=== PATIENT | female | born 1950 | race Caucasian/White ===

== ENCOUNTER 2021-11-02 13:37 | Emergency (ER) | payer MEDICARE, OTHER, SELFPAY ==
--- NOTE | ~2021-11-02 | XR_ITS ---
EXAMINATION: XR chest 2V DATE: 11/02/2021 14:41 INDICATION: Cough. Hypoxia. Pulmonary fibrosis. TECHNIQUE: Frontal and lateral views of the chest were obtained. COMPARISON: None. FINDINGS: The lung volumes are normal. There is a diffuse interstitial pattern in the lungs. There ar e mild airspace opacities in the lower lung zones. No pleural effusion or pneumothorax. Cardiomegaly is noted. There is an old healed fracture of proximal left humerus. IMPRESSION: 1. Diffuse lung disease, consistent with chronic interstitial lung disease versus mild pulmonary promise a and basilar atelectasis versus pneumonia. 2. Cardiomegaly. Reviewed, dictated and finalized at location E. IMPRESSION: 1. Diffuse lung disease, consistent with chronic interstitial lung disease vers us mild pulmonary edema and basilar atelectasis versus pneumonia. 2. Cardiomegaly.
[2021-11-02 13:39] VITALS: BP 145/66; PULSE 95; RESP 26; TEMP 36.3; O2SAT 84
--- NOTE | 2021-11-02 13:55 | ECG_ITS ---
Measurements Intervals [place] Rate: 89 P: -10 VT: 144 QRS: 41 QRSD: 89 T: 7 QT: 359 QTc: 438 Interpretive Statements SINUS RHYTHM BASELINE ARTIFACT NONSPECIFIC ST ABNORMALITY BORDERLINE ECG NO PREVIOUS ECG AVAILABLE FOR COMPARISON Electronically Signed On 11-02-2021 16:32:57 CDT by Brodie Umanzor M.D.
[2021-11-02 14:23] LABS: Basophils Percent Auto 0.4 % (0.2-1.2); Eosinophils Absolute Auto 0.3 K/mm3 (0-0.3); Eosinophils Percent Auto 3.6 % (0-4.4); Hematocrit 45.3 % (37.0-47.0); Hemoglobin 15.1 g/dL (12.0-15.0); Immature Granulocyte Absolute 0.02 K/mm3 (0.00-0.031); Immature Granulocyte Percent A 0.3 % (0-0.5); Lymphocytes Absolute Auto 1.88 K/mm3 (0.9-3.2); Lymphocytes Percent Auto 27.3 % (18.3-44.2); Mean Corpuscular HGB Conc 33.3 g/dl (32-36); Mean Corpuscular Hemoglobin 31.7 pg (26-34); Mean Corpuscular Volume 95.2 fl (80-100); Mean Platelet Volume 9.1 fl (7.4-10.4); Monocytes Absolute Auto 0.6 K/mm3 (0.1-0.6); Monocytes Percent Auto 8.1 % (2.6-8.5); Neutrophils Absolute Auto 4.2 K/mm3 (1.3-6.7); Neutrophils Percent Auto 60.3 % (45.5-73.1); Platelet Count Result 300 k/mm3 (150-375); Red Blood Count 4.76 M/mm3 (4.2-5.4); Red Cell Distribution Width 12.5 % (11.5-14.5); White Blood Count 6.9 K/mm3 (4.5-10.0)
[2021-11-02 14:50] LABS: Alanine Aminotransferase 20 U/L (4-35); Albumin Level 4.4 g/dL (3.5-5.1); Alkaline Phosphatase 122 U/L (38-126); Anion Gap 8 mmol/L (8-16); Aspartate Amino Transferase 56 U/L (14-36); Blood Urea Nitrogen 33 mg/dL (7-17); Calcium 9.8 mg/dL (8.4-10.2); Carbon Dioxide 29 mmol/L (22-30); Chloride 103 mmol/L (98-107); Estimated CRCL calculation 75 ml/min; Estimated Glomerular Filt Rate > 60; Glucose 111 mg/dL (65-110); Potassium 3.6 mmol/L (3.4-5.0); Sodium 140 mmol/L (137-145)
[2021-11-02 14:53] VITALS: PULSE 84
[2021-11-02 15:17] VITALS: BP 125/51; PULSE 85; RESP 24; O2SAT 95
--- NOTE | 2021-11-02 15:32 | ED.SOB ---
HPI - SOB/Dyspnea General Chief Complaint: Shortness of Breath/Dyspnea Stated Complaint: sob, pulmonary fibrosis Time Seen by Provider: 11/02/21 14:37 Source: patient and family Mode of arrival: ambulatory Limitations: no limitations History of Present Illness HPI Narrative: 71-year-old female presents emergency room coming by her daughter. She got on a history of pulmonary fibrosis. She lives in [place] normally. She has been in our area since the first of the year. She acquired Covid the first of the year. She was fully vaccinated including booster. She did have to be hospitalized. However she has had progressive problems with her pulmonary fibrosis since that time. She wears oxygen at home generally between 2 to 2-1/2 L and is able to keep her O2 saturations status for. Today she noticed that when she took her oxygen off her O2 sat dropped to 88%. She had this mild persistent cough ever since she had the Covid. Denies any chills or fevers. She did go back home to [place] and about 9 or 10 days. She is concerned about try to get on a plane at this point. She had been on prednisone in the past but not been on it for a couple months. She states that in the past whenever she got on the prednisone it would markedly help her breathing situation. Related Data Home Medications Medication Instructions Recorded Confirmed aspirin 11/02/21 budesonide mcg INHALATION 11/02/21 famotidine [Pepcid AC] mg 11/02/21 fluoxetine [Prozac] 60 mg PO DAILY 11/02/21 hydrochlorothiazide [HydroDiuril] 12.5 mg PO DAILY 11/02/21 oxybutynin chloride 10 mg PO DAILY 11/02/21 simvastatin 20 mg PO HS 11/02/21 Allergies Allergy/AdvReac Type Severity Reaction Status Date / Time penicillin V Allergy Hives Verified 11/02/21 13:43 Review of Systems Review of Systems: CONSTITUTIONAL: Denies fever, chills, or sweats. EYES: Denies visual changes, redness, or discharge. ENT: Denies rhinorrhea, congestion, sore throat, or otalgia. CARDIOVASCULAR: Denies chest pain, palpitations, or edema. RESPIRATORY: Productive cough with some sputum. Shortness of breath. Requiring oxygen.. GASTROINTESTINAL: Denies abdominal pain, nausea, vomiting, or diarrhea. GENITOURINARY: Denies dysuria or hematuria. SKIN: Denies rash or itching. MUSCULOSKELETAL: Denies back pain, joint pain, or myalgia. NEUROLOGIC: Denies headache, numbness, or weakness. PSYCHIATRIC: Denies anxiety or depression. [facility] Past Medical History Medical History Pulmonary fibrosis Social History Social History Smoking status: Never smoker Exam Narrative: APPEARANCE: Well appearing, no pain in distress, well-nourished. Head normocephalic atraumtaic. EYES: PERRLA/EOMI, conjunctivae very clear. NOSE: Normal no drainage EARS:TMS clear Jakob Tim, with good light reflex. THROAT: Pharynx clear, no exudate. NECK: Supple. No adenopathy, no masses. RESPIRATORY: Airway patent, repsirations nonlabored. Scattered diffuse mild crackles. CARDIOVASCULAR: Regular rate and rhythm without murmurs rubs or gallops. ABDOMINAL: Soft, nontender, nondistended, no hepatosplenomegally MUSCULOSKELETAl: Moves all extremities. Strenght/ROM intact, No edema, No calf tenderness. NEURO: Alert. Cranial nerves II through XII intact. Good gait. Good coordination SKIN:: Warm, dry. Normal Color PSYCHIATRIC: Normal affect/mood, normal interaction with parents. Course Vital Signs Vital signs: Vital Signs Temperature 97.4 F L 11/02/21 13:39 Pulse Rate 95 11/02/21 13:39 Respiratory Rate 26 H 11/02/21 13:39 Blood Pressure 145/66 H 11/02/21 13:39 Pulse Oximetry 84 L 11/02/21 13:39 Temperature 97.4 F L 11/02/21 13:39 Pulse Rate 85 11/02/21 15:17 Respiratory Rate 24 H 11/02/21 15:17 Blood Pressure 125/51 L 11/02/21 15:17 Pulse Oximetry 95 11/02/21 15:17 MDM - SOB/Dyspn
[2021-11-02 15:43] VITALS: BP 125/62; PULSE 80; RESP 20; O2SAT 95
== END 2021-11-02 15:45 | disposition home or self-care (01) ==
PROVIDERS: Emergency Medicine; Emergency Provider Emergency Medicine
DX: J84.10 Pulmonary fibrosis, unspecified (principal); Z99.81 Dependence on supplemental oxygen; Z86.16 Personal history of COVID-19; Z79.82 Long term (current) use of aspirin; R94.31 Abnormal electrocardiogram [ECG] [EKG]
CPT/HCPCS: 36415; 71046; 80053; 85025; 93005; 99284

== ENCOUNTER 2022-07-03 16:03 | Emergency (ER) | payer MEDICARE, SELFPAY ==
[2022-07-03] VITALS (28 sets, daily range): BP systolic 113–162; BP diastolic 56–93; PULSE 63–97; RESP 18–32; TEMP 37.1; O2SAT 88–99
--- NOTE | ~2022-07-03 | XR_ITS ---
XR chest 2V 07/03/2022 17:11 Indication: Shortness of breath. Pulmonary fibrosis. Procedure: 2 view chest Comparison: 11/02/2021 Findings: Cardiomegaly with interstitial edema. No pleural effusion or pneumothorax. No acute osseous abnormality. No acute osseous abnormality. Impression: 1: Cardiomegaly with interstitial edema. Reviewed, dictated and finalized at location A. RAM MANAGER ENVIRONMENTAL PLANNING Impression: 1: Cardiomegaly with interstitial edema.
--- NOTE | ~2022-07-03 | CT_ITS ---
EXAMINATION: CTA chest PE protocol DATE: 07/03/2022 17:24 CANDY POLISHER INDICATION: Pulmonary embolism TECHNIQUE: Computed tomographic angiography (CTA) of the chest was performed with 100 mL Omnipaque-35 0 intravenous contrast. The dose-length product was 674.89 mGy-cm. Maximum intensity projection 3D-re constructions of the aorta and other arteries were constructed by the technologist on a separate work station. Automated exposure control and iterative reconstruction technique were employed. COMPARISON: No prior studies for comparison. . FINDINGS: Cardiomegaly. No significant pleural or pericardial effusion. There is mediastinal lipomato sis. Enlarged pulmonary arteries. Study is technically adequate without evidence for pulmonary emboli sm. There is extensive course interstitial changes throughout both lungs with bilateral bronchiectasi s and superimposed areas of groundglass opacification throughout. No endobronchial lesions. No pneumo thorax. No acute osseous abnormality. IMPRESSION: 1. No evidence for pulmonary embolism. 2: Severe chronic interstitial lung disease. 3: Pulmonary arterial hypertension. 4: Cardiomegaly. Reviewed, dictated and finalized at location A. Y POLISHER
--- NOTE | 2022-07-03 16:15 | ECG_ITS ---
Measurements Intervals [place] Rate: 82 P: 10 SC: 148 QRS: 30 QRSD: 86 T: 15 QT: 367 QTc: 429 Interpretive Statements SINUS RHYTHM WITH PREMATURE ATRIAL CONTRACTIONS BASELINE ARTIFACT NONSPECIFIC ST ABNORMALITY INFERIOR LEADS COMPARED TO ECG 11/02/2021 14:04:59 PREMATURE ATRIAL CONTRACTIONS ARE NOW PRESENT Electronically Signed On 07-04-2022 14:01:38 FINAL CLEANER by Brodie Umanzor M.D.
[2022-07-03 16:32] LABS: Basophils Percent Auto 0.4 % (0.2-1.2); Eosinophils Absolute Auto 0.1 K/mm3 (0-0.3); Eosinophils Percent Auto 0.8 % (0-4.4); Hematocrit 46.8 % (37.0-47.0); Hemoglobin 15.5 g/dL (12.0-15.0); Immature Granulocyte Absolute 0.05 K/mm3 (0.00-0.031); Immature Granulocyte Percent A 0.6 % (0-0.5); Lymphocytes Absolute Auto 1.42 K/mm3 (0.9-3.2); Lymphocytes Percent Auto 15.7 % (18.3-44.2); Mean Corpuscular HGB Conc 33.1 g/dl (32-36); Mean Corpuscular Hemoglobin 32.6 pg (26-34); Mean Corpuscular Volume 98.5 fl (80-100); Mean Platelet Volume 9.3 fl (7.4-10.4); Monocytes Absolute Auto 0.4 K/mm3 (0.1-0.6); Monocytes Percent Auto 4.2 % (2.6-8.5); Neutrophils Absolute Auto 7.1 K/mm3 (1.3-6.7); Neutrophils Percent Auto 78.3 % (45.5-73.1); Platelet Count Result 271 k/mm3 (150-375); Red Blood Count 4.75 M/mm3 (4.2-5.4); Red Cell Distribution Width 13.1 % (11.5-14.5)
[2022-07-03 16:42] LABS: Alanine Aminotransferase 31 U/L (6-35); Albumin Level 4.5 g/dL (3.5-5.1); Alkaline Phosphatase 104 U/L (38-126); Anion Gap 12 mmol/L (8-16); Aspartate Amino Transferase 46 U/L (14-36); Bilirubin,Total 1.4 mg/dL (0.2-1.3); Blood Urea Nitrogen 24 mg/dL (7-17); Calcium 9.7 mg/dL (8.4-10.2); Carbon Dioxide 26 mmol/L (22-30); Chloride 101 mmol/L (98-107); Estimated Glomerular Filt Rate > 60; Glucose 113 mg/dL (65-110); Potassium 4.1 mmol/L (3.4-5.0); Sodium 139 mmol/L (137-145)
[2022-07-03 17:40] LABS: NT Pro B Type Natriuretic Pept 38 pg/mL (5-100)
--- NOTE | 2022-07-03 18:32 | ED.SOB ---
HPI - SOB/Dyspnea General Chief Complaint: Shortness of Breath/Dyspnea Stated Complaint: SOB hx of pulmonary fibrosis Time Seen by Provider: 07/03/22 16:17 History of Present Illness HPI Narrative: Patient is a 71-year-old female who presents to the ER with shortness of breath. Patient has history of pulmonary fibrosis. She is requiring 4 L of oxygen at baseline. No increased O2 requirement but she reports her pulse oximeter was in the 60s at home. No chest pain or chest pressure. Recently traveled to the [place] and back but she was doing this by plane. She is currently up here visiting her daughter from [place]. Patient has chronic cough. No new fevers. No new production to her cough. Related Data Home Medications Medication Instructions Recorded Confirmed aspirin 81 mg capsule 11/02/21 budesonide 200 mcg/actuation mcg inhalation 11/02/21 breath activated powder inhaler famotidine 20 mg chewable tablet mg 11/02/21 fluoxetine 20 mg capsule (Prozac) 60 mg PO DAILY 11/02/21 hydrochlorothiazide 25 mg tablet 12.5 mg PO DAILY 11/02/21 oxybutynin chloride 10 mg 10 mg PO DAILY 11/02/21 tablet,extended release 24 hr simvastatin 20 mg tablet 20 mg PO HS 11/02/21 Allergies Allergy/AdvReac Type Severity Reaction Status Date / Time penicillin V Allergy Hives Verified 07/03/22 16:39 Review of Systems Review of Systems: All systems reviewed & are unremarkable except as noted in HPI and below Constitutional: Constitutional: Denies chills, Denies fatigue and Denies fever(s) ENT: Denies nasal congestion and Denies sore throat Cardiovascular: Cardiovascular: Denies chest pain and Denies radiating jaw, neck or arm pain Respiratory: Respiratory: Reports cough, Reports dyspnea and Denies wheezing Gastrointestinal: Gastrointestinal: Denies abdominal pain, Denies nausea and Denies vomiting PMFSH Past Medical History Medical History (Updated 07/03/22 @ 19:17 by Josh Miller MD) GERD (gastroesophageal reflux disease) Hyperlipidemia Hypertension Pulmonary fibrosis Social History Social History Smoking status: Never smoker Exam Narrative: GENERAL: Well-appearing, well-nourished, and in no acute distress. HEAD: Normocephalic, atraumatic. EYES: PERRL and EOMI. ENT: Mucous membranes moist. CHEST: Clear to auscultation. No respiratory distress. HEART: Regular rate and rhythm. Normal peripheral pulses. ABDOMEN: Soft, nontender, nondistended. EXTREMITIES: Normal range of motion. No edema. SKIN: Warm, dry, no rash. NEURO: Alert and oriented x3. PSYCH: Normal mood and affect. Course Course Emergency Course: No hypoxia here. No increase in oxygen requirement. No PE or pneumonia. Will increase patient's steroids for home. Vital Signs Vital signs: Vital Signs Temperature 98.7 F 07/03/22 16:16 Pulse Rate 97 07/03/22 16:16 Respiratory Rate 32 H 07/03/22 16:16 Blood Pressure 162/83 H 07/03/22 16:16 Pulse Oximetry 93 07/03/22 16:16 Oxygen Delivery Nasal Cannula 07/03/22 16:16 Oxygen Flow Rate 4 07/03/22 16:16 Temperature 98.7 F 07/03/22 16:16 Pulse Rate 70 07/03/22 19:01 Respiratory Rate 23 H 07/03/22 19:01 Blood Pressure 131/69 07/03/22 19:01 Pulse Oximetry 99 07/03/22 17:46 Oxygen Delivery Nasal Cannula 07/03/22 16:24 Oxygen Flow Rate 4 07/03/22 16:24 MDM - SOB/Dyspnea Lab Data 07/03/22 16:26 07/03/22 16:26 Labs: Lab Results 07/03/22 07/03/22 07/03/22 Range/Units 16:26 16:26 16:26 WBC 9.0 (4.5-10.0) K/mm3 RBC 4.75 (4.2-5.4) M/mm3 Hgb 15.5 H (12.0-15.0) g/dL Hct 46.8 (37.0-47.0) % MCV 98.5 (80-100) fl MCH 32.6 (26-34) pg MCHC 33.1 (32-36) g/dl RDW 13.1 (11.5-14.5) % Plt Count 271 (150-375) k/mm3 MPV 9.3 (7.4-10.4) fl Immature Gran % (Auto) 0.6 H (0-0.5) % Neut % (Auto) 78.3 H (45
--- NOTE | 2022-07-03 21:45 | PC.NURSE ---
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 Taco Jameson in pulmonology in [place] with [facility].
== END 2022-07-03 20:02 | disposition home or self-care (01) ==
PROVIDERS: Emergency Provider Emergency Medicine
DX: J84.10 Pulmonary fibrosis, unspecified (principal); I10 Essential (primary) hypertension; E78.5 Hyperlipidemia, unspecified; K21.9 Gastro-esophageal reflux disease without esophagitis; Z99.81 Dependence on supplemental oxygen; Z79.82 Long term (current) use of aspirin; I51.7 Cardiomegaly; I27.21 Secondary pulmonary arterial hypertension
CPT/HCPCS: 36415; 71046; 71275; 80053; 83880; 85025; 93005; 99284; Q9967

== ENCOUNTER 2022-07-24 14:57 | Inpatient (IN) | payer MEDICARE, SELFPAY ==
[2022-07-24] VITALS (47 sets, daily range): BP systolic 97–162; BP diastolic 54–82; PULSE 71–110; RESP 18–42; TEMP 36.5; O2SAT 77–100; BMI 33.7
--- NOTE | ~2022-07-24 | XR_ITS ---
Portable chest x-ray Comparison: 07/03/2022 Clinical History: Cough, pulmonary fibrosis Findings: Diffuse interstitial disease is present throughout both lungs. No pleural effusion or pneu mothorax. Cardiomediastinal silhouette is stable. Bones and soft tissues are unremarkable. Impression: Diffuse chronic interstitial disease. Reviewed, dictated and finalized at location . CTOR OF PHYSICAL EDUCATION Impression: Diffuse chronic interstitial disease.
--- NOTE | ~2022-07-24 | XR_ITS ---
EXAMINATION: XR chest 1V portable DATE: 07/26/2022 10:52 INDICATION: Increasing shortness of breath TECHNIQUE: frontal view of the chest was obtained. COMPARISON: Chest radiograph and chest CT studies dated 07/24/2022 and 07/03/2022 and chest radiograph dated 11/19/2021 FINDINGS: Unchanged diffuse interstitial and airspace opacities throughout both lungs. No pleural effusion or p neumothorax. Mild cardiomegaly. IMPRESSION: 1. Unchanged diffuse interstitial and airspace opacities throughout both lungs which could represent pulmonary edema or pneumonia in the acute setting, chronic interstitial lung disease or some combinat ion thereof. Reviewed, dictated and finalized at location A. EAR MEDICINE TECHNICIAN IMPRESSION: 1. Unchanged diffuse interstitial and airspace opacities throughout both lungs which could represent pulmonary edema or pneumonia in the acute setting, chroni c interstitial lung disease or some combination thereof.
--- NOTE | ~2022-07-24 | XR_ITS ---
Portable chest x-ray Comparison: 07/26/2022 Clinical History: Interstitial lung disease Findings: Diffuse interstitial lung disease is stable from prior exam. No pneumothorax or pleural ef fusion. Cardiomediastinal silhouette is stable. Bones and soft tissues are unremarkable. Impression: Stable diffuse chronic interstitial disease. Reviewed, dictated and finalized at [facility]. D SUPPORT AGENT Impression: Stable diffuse chronic interstitial disease.
--- NOTE | ~2022-07-24 | CT_ITS ---
EXAMINATION: CTA chest PE protocol DATE: 07/24/2022 17:22 INDICATION: Shortness of breath. Pulmonary fibrosis. TECHNIQUE: Computed tomography angiography (CTA) of the chest was performed with 100 mL Omnipaque-350 intravenous contrast timed to evaluate the pulmonary arteries. Coronal maximum intensity projection 3D-reconstructions were created by the technologist. Automated exposure control and iterative reconst ruction technique were employed. Exam dose: 682.13 mGy-cm total exam DLP. COMPARISON: 07/24/2022 portable AP chest 07/03/2022 CT pulmonary FINDINGS: There is diagnostic contrast enhancement of the pulmonary arteries and no evidence of pulmo nary embolism. No thoracic aortic aneurysm or dissection. Heart size is within normal range. No pericardial or pleur al effusion. No hilar or mediastinal significantly enlarged lymph nodes. Extensive patchy mosaic 07/24/2022 interstitial fibrosis and bronchiectasis. Normal morphology of the adrenal glands. Small sliding hiatal hernia. Degenerative spurring of the thoracic spine. No significant osteolytic or osteoblastic lesions. IMPRESSION: No evidence of pulmonary embolism Extensive bilateral pulmonary interstitial fibrosis Reviewed, dictated and finalized at Location A. Reviewed, dictated and finalized at location A. ERCIAL CONSTRUCTION SUPERINTENDENT
--- NOTE | 2022-07-24 15:09 | ECG_ITS ---
Measurements Intervals [place] Rate: 100 P: 14 DE: 167 QRS: 35 QRSD: 86 T: 21 QT: 325 QTc: 420 Interpretive Statements SINUS TACHYCARDIA NONSPECIFIC T-WAVE ABNORMALITY ABNORMAL RHYTHM ECG COMPARED TO ECG 07/03/2022 16:28:36 NO SIGNIFICANT DIFFERENCE Electronically Signed On 07-24-2022 20:08:41 WELDER PRODUCTION LINE GAS by Lucas Brownlee M.D.
[2022-07-24 15:20] LABS: Basophils Percent Auto 0.4 % (0.2-1.2); Eosinophils Percent Auto 0.2 % (0-4.4); Hematocrit 45.3 % (37.0-47.0); Immature Granulocyte Absolute 0.04 K/mm3 (0.00-0.031); Immature Granulocyte Percent A 0.5 % (0-0.5); Lymphocytes Absolute Auto 0.97 K/mm3 (0.9-3.2); Lymphocytes Percent Auto 11.4 % (18.3-44.2); Mean Corpuscular HGB Conc 33.1 g/dl (32-36); Mean Corpuscular Hemoglobin 32.4 pg (26-34); Mean Corpuscular Volume 97.8 fl (80-100); Mean Platelet Volume 9.1 fl (7.4-10.4); Monocytes Absolute Auto 0.3 K/mm3 (0.1-0.6); Monocytes Percent Auto 3.4 % (2.6-8.5); Neutrophils Absolute Auto 7.2 K/mm3 (1.3-6.7); Neutrophils Percent Auto 84.1 % (45.5-73.1); Platelet Count Result 222 k/mm3 (150-375); Red Blood Count 4.63 M/mm3 (4.2-5.4); Red Cell Distribution Width 13.3 % (11.5-14.5); White Blood Count 8.5 K/mm3 (4.5-10.0)
--- NOTE | 2022-07-24 15:23 | ED.SOB ---
HPI - SOB/Dyspnea General Chief Complaint: Shortness of Breath/Dyspnea Stated Complaint: SOB Time Seen by Provider: 07/24/22 15:19 Source: RN notes reviewed History of Present Illness HPI Narrative: Patient presents emergency department from home for shortness of breath. Patient states she has history of pulmonary fibrosis chronically on 4 L nasal cannula noted increased shortness of breath started yesterday with a cough this been nonproductive. States at that time she had increase her oxygen to 5 L but still noted increased shortness of breath with any sort of exertion patient arrived in our ER on 6 L with an O2 sat of 77% was placed on nonrebreather. She denies any fevers or chills she denies any chest pain abdominal pain symptoms Related Data Home Medications Medication Instructions Recorded Confirmed aspirin 81 mg capsule 11/02/21 budesonide 200 mcg/actuation mcg inhalation 11/02/21 breath activated powder inhaler famotidine 20 mg chewable tablet mg 11/02/21 fluoxetine 20 mg capsule (Prozac) 60 mg PO DAILY 11/02/21 hydrochlorothiazide 25 mg tablet 12.5 mg PO DAILY 11/02/21 oxybutynin chloride 10 mg 10 mg PO DAILY 11/02/21 tablet,extended release 24 hr simvastatin 20 mg tablet 20 mg PO HS 11/02/21 Allergies Allergy/AdvReac Type Severity Reaction Status Date / Time penicillin V Allergy Hives Verified 07/24/22 15:09 Review of Systems Review of Systems: Gen.: Denies fevers or chills ENT: Denies congestion Respiratory: See HPI CV: Denies chest pain or palpitations GI: Denies abdominal pain nausea, emesis or diarrhea Musculoskeletal: Denies back pain or muscle pain Neuro: Denies numbness, tingling, weakness or focal weakness Skin: Denies rash Except as documented, all other systems reviewed and negative [facility] Past Medical History Medical History GERD (gastroesophageal reflux disease) Hyperlipidemia Hypertension Pulmonary fibrosis Social History Social History Smoking status: Never smoker Exam Narrative: APPEARANCE: No acute distress, nontoxic, resting in bed EYES: EOMI HEENT: Normocephalic, atraumatic, OMM RESPIRATORY: Mild respiratory distress, wheezing in the bilateral upper lung canales with decreased breath sounds in the bases with crackles present CARDIOVASCULAR: Regular rate and rhythm without murmurs rubs or gallops. ABDOMINAL: Soft, nontender, nondistended, no rebound or guarding MUSCULOSKELETAl: Moves all extremities. No clubbing, cyanosis or edema. NEURO: Awake and alert. Following commands, speech normal, no focal deficits SKIN:: Warm, dry. No rashes lesions or abrasions PSYCHIATRIC: Normal affect/mood, Course Course Emergency Course: Patient was given breathing treatment and then placed on high flow nasal cannula at 10 L an hour with good improvement Discussed with ELYSSA Doty for Dr. Kiser agrees with admission. Request patient started on Levaquin Discussed with patient and family results of workup and diagnosis. Discussed need for admission. Patient and family understand and agree to current treatment plan Vital Signs Vital signs: Vital Signs Pulse Rate 110 H 07/24/22 15:03 Respiratory Rate 42 H 07/24/22 15:03 Blood Pressure 162/82 H 07/24/22 15:03 Pulse Oximetry 77 L 07/24/22 15:03 Oxygen Delivery Nasal Cannula 07/24/22 15:03 Oxygen Flow Rate 6 07/24/22 15:03 Pulse Rate 96 07/24/22 17:01 Respiratory Rate 25 H 07/24/22 17:01 Blood Pressure 125/64 07/24/22 17:01 Pulse Oximetry 92 07/24/22 17:24 Oxygen Delivery High Flow Nasal Cannula 07/24/22 16:19 Oxygen Flow Rate 10 07/24/22 16:19 MDM - SOB/Dyspnea Lab Data 07/24/22 15:14 07/24/22 15:14 Labs: Lab Results 07/24/22 07/24/22 07/24/22 Range/Units 15:14 15:14 15:14 WBC 8.5 (4.5-10.0) K/mm3 RBC 4.63 (4.2-5.4) M/mm3 Hgb
[2022-07-24] MEDS: SODIUM CHLORIDE 0.9% IV 1,000 ML 999 ML IV CONT (15:29)
[2022-07-24 15:30] LABS: Alanine Aminotransferase 32 U/L (6-35); Albumin Level 4.2 g/dL (3.5-5.1); Alkaline Phosphatase 93 U/L (38-126); Anion Gap 7 mmol/L (8-16); Aspartate Amino Transferase 44 U/L (14-36); Bilirubin,Total 1.3 mg/dL (0.2-1.3); Blood Urea Nitrogen 15 mg/dL (7-17); Calcium 8.9 mg/dL (8.4-10.2); Carbon Dioxide 29 mmol/L (22-30); Chloride 100 mmol/L (98-107); Estimated CRCL calculation 81 ml/min; Estimated Glomerular Filt Rate > 60; Glucose 157 mg/dL (65-110); Potassium 3.8 mmol/L (3.4-5.0); Sodium 136 mmol/L (137-145)
[2022-07-24] MEDS: ALBUTEROL SULFATE NEB 2.5 MG/3 ML INH 5 MG INHALATION ×2 (15:32→22:20)
[2022-07-24] MEDS: IPRATROPIUM BR 0.02% INH SOLN 0.5 MG/2.5 ML VIAL INHALATION ×2 (15:32→22:20)
[2022-07-24 15:50] LABS: Alveolar/Arterial O2 Gradient 543.3 mmHg; Base Excess ABG 1.1 mEq/l (+/-2.0); Carboxyhemoglobin 1.3 % THb (0-2.0); Fractional Inspired Oxygen 100 %; HCO3 ABG 25.5 mEq/l (22.0-26.0); Methemoglobin ABG 0.2 %THb (0-1.5); Oxygen Content ABG 19.9 %vol (16.0-22.0); Oxygen Saturation ABG 98.7 % (95.0-100.0); Oxyhemoglobin 96.6 % THb (90.0-100.0); PCO2 ABG 39.7 mmHg (35.0-45.0); Reduced Hemoglobin 1.9 %THb (0-5.0); Total Hemoglobin 14.5 g/dL (12.0-18.0); pH ABG 7.425 (7.350-7.450)
[2022-07-24 15:51] LABS: Device NON-REBREATHER MASK; Site Drawn LEFT BRACHIAL
[2022-07-24 17:46] LABS: Influenza A QL RT-PCR Negative (Negative); Influenza B QL RT-PCR Negative (Negative); SARS-CoV-2 RNA PCR Negative
[2022-07-24 19:11] LABS: Prothrombin Time 12.9 Seconds (11.1-14.7)
[2022-07-24 19:12] LABS: Partial Thromboplastin Time 33.1 SECONDS (22.3-36.8)
[2022-07-24 19:21] LABS: Lactic Acid Reflex 1.9 mmol/L (0.7-2.0)
--- NOTE | 2022-07-24 21:23 | PC.NURSE ---
This patient, Cheyenne Santos, was admitted to IMU Room 202-01. Patient/family oriented to hospital policies and general routines including ID bracelet, bed and alarms, visiting hours, pain management, procedures, bathroom and other care routines, personal items, smoking policy, room service/diet, and visiting hours. Information on how to activate the Rapid Response Team has been discussed. Patient/Family are encouraged to report perceived risks to care and to ask questions if they do not understand what they are told or what they should do.
--- NOTE | 2022-07-24 22:00 | PC.NURSE ---
This patient, Cheyenne Santos, was admitted to IMU Room 202-01 at 2130 . Patient/family oriented to hospital policies and general routines including ID bracelet, bed and alarms, visiting hours, pain management, procedures, bathroom and other care routines, personal items, smoking policy, room service/diet, and visiting hours. Information on how to activate the Rapid Response Team has been discussed. Patient/Family are encouraged to report perceived risks to care and to ask questions if they do not understand what they are told or what they should do.
[2022-07-24] MEDS: WATER FOR IRRIGATION, STERILE 1,000 ML BOTTLE 1000 ML (22:03)
--- NOTE | 2022-07-24 22:29 | PM.IMHP ---
H&P: HPI History of Present Illness Date/Time: 07/24/22 22:29 Chief Complaint: Shortness of breath Narrative: 71-year-old female with a past medical history of chronic hypoxic respiratory failure due to bronchiectasis and idiopathic pulmonary fibrosis who presented to the ER with increased shortness of breath. Patient reports that she has actually been having increased cough and shortness of breath for 1 week but it acutely worsened last night. Her home oxygen concentrator only goes up the 5 L nasal cannula. She is usually on 4 L nasal cannula at all times. When EMS arrived to her home she had tried to turn her concentrator up to 6 L nasal cannula and was satting 70%. EMS place patient on 15 L non-rebreather to maintain oxygen saturations of 98%. She reports that her cough has been productive of clear sputum. She denies fevers or chills. She has not noticed any weight gain or lower extremity swelling. She states that she recently moved here from [place] 2 months ago and is trying to get established with Dr. Leyva from pulmonology. She has not yet found a primary care physician. She was having increased respiratory symptoms a couple of weeks ago and received a prednisone burst and is currently being tapered back down to her chronic home prednisone dose of 10 mg. She has been back down to 10 mg for a couple of days. She reports that she has been using her home nebulizers with little to no relief in her symptoms. She reports some lateral rib pain due to coughing. She denies any initial chest pain. She reports that she is nearly completely immobile at baseline. She stands and has a folding transport chair to get anywhere of any real distance but can walk far enough to get to the bathroom. She does not use a walker or a cane. She has been receiving oral I statin for last 4-5 days due to oral thrush in sores in her mouth which was called in by her primary care physician in [place]. She had COVID-20 August 2021. She is fully vaccinated against COVID and influenza. Review of Systems Review of Systems: 12 systems were reviewed with pertinent positives and negatives per HPI. Except as documented in the HPI, all other systems were reviewed and are negative. [facility] Past Medical History Medical History (Updated 07/25/22 @ 11:30 by Moi Bansal MD) Bronchiectasis Depression with anxiety GERD (gastroesophageal reflux disease) Hyperlipidemia Hypertension Idiopathic peripheral neuropathy Macular degeneration Mixed incontinence urge and stress Pulmonary fibrosis Surgical History Surgical History (Updated 07/25/22 @ 09:17 by Hollie Kiser DO) History of laparoscopic cholecystectomy (~2011) Status post cataract extraction of both eyes with insertion of intraocular lens Status post open reduction with internal fixation of fracture (~2018) Left wrist fracture Family History Family History Sibling Diabetes mellitus Uterine cancer Sibling Sjogren's disease Rheumatoid arthritis Social History Social History (Updated 07/25/22 @ 09:19 by Hollie Kiser DO) Social History: The patient used to live with her daughter in [place] but decided to come live with her daughter here in May of 2022. She denies any significant alcohol use. 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 Code status: Full code Surrogate decision maker: Daughter Smoking status: Never smoker Alcohol intake: never Substance use: never Lack of Transportation: No Lack of Food: Never True Current Housing: I Have Housing Concerned About Future Housing: No Difficulty Paying Gas/Electric Bills: No Difficulty Paying for Meds: No Currently Unemployed: No Education: Decline to Answer Difficulty w/ Childcare or Family Care: No Spiritual care concerns: No Meds Home Medications and Allergies Home Medications Medication Instructions Recorded Confirmed Ty
[2022-07-24] MEDS: methylPREDNISolone SOD SUCC 125 MG VIAL 60 MG IV PUSH (22:57)
[2022-07-25] VITALS (20 sets, daily range): BP systolic 130–151; BP diastolic 51–77; PULSE 73–103; RESP 18–24; TEMP 36.2–36.8; O2SAT 90–95
[2022-07-25] MEDS: methylPREDNISolone SOD SUCC 125 MG VIAL 60 MG IV PUSH ×2 (05:34→17:49)
[2022-07-25 05:44] LABS: Basophils Percent Auto 0.1 % (0.2-1.2); Hemoglobin 13.2 g/dL (12.0-15.0); Immature Granulocyte Absolute 0.03 K/mm3 (0.00-0.031); Immature Granulocyte Percent A 0.4 % (0-0.5); Lymphocytes Absolute Auto 0.47 K/mm3 (0.9-3.2); Lymphocytes Percent Auto 6.9 % (18.3-44.2); Mean Corpuscular HGB Conc 32.2 g/dl (32-36); Mean Corpuscular Hemoglobin 31.4 pg (26-34); Mean Corpuscular Volume 97.6 fl (80-100); Mean Platelet Volume 9.5 fl (7.4-10.4); Monocytes Absolute Auto 0.1 K/mm3 (0.1-0.6); Neutrophils Absolute Auto 6.3 K/mm3 (1.3-6.7); Neutrophils Percent Auto 91.6 % (45.5-73.1); Platelet Count Result 200 k/mm3 (150-375); Red Cell Distribution Width 13.2 % (11.5-14.5); White Blood Count 6.9 K/mm3 (4.5-10.0)
[2022-07-25 05:54] LABS: Alanine Aminotransferase 30 U/L (6-35); Albumin Level 3.6 g/dL (3.5-5.1); Alkaline Phosphatase 87 U/L (38-126); Anion Gap 4 mmol/L (8-16); Aspartate Amino Transferase 40 U/L (14-36); Bilirubin,Total 1.1 mg/dL (0.2-1.3); Blood Urea Nitrogen 12 mg/dL (7-17); Calcium 8.4 mg/dL (8.4-10.2); Carbon Dioxide 31 mmol/L (22-30); Chloride 104 mmol/L (98-107); Estimated CRCL calculation 94 ml/min; Estimated Glomerular Filt Rate > 60; Glucose 175 mg/dL (65-110); Potassium 3.8 mmol/L (3.4-5.0); Sodium 139 mmol/L (137-145)
[2022-07-25] MEDS: ALBUTEROL SULFATE NEB 2.5 MG/3 ML INH 5 MG INHALATION ×3 (07:58→21:28)
[2022-07-25] MEDS: IPRATROPIUM BR 0.02% INH SOLN 0.5 MG/2.5 ML VIAL INHALATION ×3 (07:58→21:28)
[2022-07-25] MEDS: OPTI-GEN TAB 1 TABLET PO ×2 (09:45→17:49)
[2022-07-25] MEDS: CHOLECALCIFEROL 1,000 UNITS TABLET 5000 UNITS PO (09:46)
[2022-07-25] MEDS: ASPIRIN 81 MG ENTERIC TABLET PO (09:46)
[2022-07-25] MEDS: FLUoxetine HCL 20 MG CAPSULE 60 MG PO (09:46)
[2022-07-25] MEDS: FLUCONAZOLE 100 MG TABLET PO (09:46)
[2022-07-25] MEDS: FLUTICASONE PROPIONATE 0.05% NA SPR 16 GM BTL (*BKC) 2 SPRAY NASAL (09:46)
[2022-07-25] MEDS: hydroCHLOROthiazide 12.5 MG CAPSULE PO (09:46)
[2022-07-25] MEDS: ENOXAPARIN 40 MG/0.4 ML SYRINGE SUB-Q (09:46)
[2022-07-25] MEDS: NYSTATIN 100,000 UNITS/ML SUSP 5 ML ORAL.SUSP 4 ML PO ×4 (09:46→21:31)
--- NOTE | 2022-07-25 10:40 | PM.IMPN ---
Progress Note: A&P Assessment and Plan (1) Acute and chronic respiratory failure with hypoxia: Code(s): J96.21 - Acute and chronic respiratory failure with hypoxia Status: Acute Assessment and Plan: Patient has acute on chronic hypoxic respiratory failure due to exacerbation of her pulmonary fibrosis and bronchiectasis. CTA chest showing no PE or infiltrates but showing extensive bilateral pulmonary fibrosis. The etiology of the flare could include bronchospasm with from cold weather, the fact she has been off her nebulizer treatments for a week and/or acute bronchitis. Pulmonary consult ordered. -continue empiric antibiotic therapy with Levaquin. -continue scheduled Solu-Medrol. -continue coronet and incentive spirometer to help with pulmonary toilet. -continue patient's home loratadine, Flonase, and inhaled corticosteroid. -continue scheduled nebulizer therapy q.6 hours with albuterol and Atrovent -wean O2 to keep SpO2>89% -add mucinex (2) Pulmonary fibrosis: Code(s): J84.10 - Pulmonary fibrosis, unspecified Status: Acute Assessment and Plan: Patient with idiopathic pulmonary fibrosis originally diagnosed in [place]. Her open claims representative is Dr. Jameson. She has moved to this area and is trying to establish care with Dr. Calloway. She states she is not a candidate for lung transplant. 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 -wean o2 as toelrated (3) Oral pharyngeal candidiasis: Code(s): B37.0 - Candidal stomatitis Status: Acute Assessment and Plan: Patient has oral pharyngeal thrush and still has evidence of thrush despite being on nystatin for 4-5 days. Fluconazole p.o. daily for 5 days was started. (4) Hyperglycemia: Code(s): R73.9 - Hyperglycemia, unspecified Status: Acute Assessment and Plan: The patient's blood glucose was reviewed on 07/25 Glucose is elevated probably related to steroids. Start AccuCheks covering with sliding scale. Hypoglycemia protocol kely be available as needed. (5) Depression with anxiety: Code(s): F41.8 - Other specified anxiety disorders Status: Acute Assessment and Plan: She is anxious. Possibly related to the steroids and/or nebulizer treatments. Continue Prozac. COnsider adding Buspar if it is felt that her anxiety is contributing to her respiratory issues (6) Hypertension: Code(s): I10 - Essential (primary) hypertension Status: Acute Assessment and Plan: Patient's blood pressure was reviewed on 07/25 Blood pressure remains well controlled. Will continue current medications. Subjective Date/time seen: 07/25/22 10:40 Interval history: 71yo female with pulmonary fibrosis here for SOB. patient is originally from [place]. She was seeing Dr. Jameson as a open claims representative there. She has moved to this area recently and is trying to establish care with Dr. Calloway. She is steroid dependent. She normally uses her nebulizer treatments 3-4 times per week but has increase this over the past 3 weeks to 1-2 times a day. She developed thrush about a week ago and stopped taking her nebulizer treatments because she thought this was contributing to the thrush. She lives with her daughter who is a teacher. No sick contacts at home but her daughter is exposed to sick people at work. Patient denies any fever or chills. Her cough is nonproductive. She does not wear BiPAP at home. She normally uses 4 L of oxygen her SpO2 runs 89-92%. She had to increase her oxygen to 5 L recently. She became severely hypoxic on 9L when she was up to the bedside commode.She states she is not a candidate for lung transplant. Exam Narrative: AF 97.2 136/62 91 20 94% 9L Gen - NARD HEENT - scant amount thrush noted of the soft
--- NOTE | 2022-07-25 11:58 | PM.CNPUL ---
Assessment and Plan Assessment and plan (1) Pulmonary fibrosis: Code(s): J84.10 - Pulmonary fibrosis, unspecified Status: Acute Assessment and Plan: 71-year-old female with history of chronic hypoxemic respiratory failure related to pulmonary fibrosis. The patient has been on nintedanib for possible idiopathic pulmonary fibrosis as she stated. On physical exam she has diffuse crackles bilaterally and no clubbing. She is a never smoker. To my review the chest CT showed primarily diffuse ground-glass opacities with bronchiectasis, some reticulation, characteristic absence of honeycombing and also evidence of possible lobular air trapping. This CT pattern makes IPF less likely and could be due to chronic hypersensitivity pneumonitis or fibrotic NSIP. Since she has progressive pulmonary fibrosis on clinical rounds, the patient has been on the right treatment with nintedanib daily for the last year. In addition the chest CT showed prominent pulmonary arteries which could indicate secondary pulmonary hypertension which is usually found in such patients with this advanced stage of pulmonary fibrosis. Cause of current worsening of respiratory failure not quite clear. On the last 2 chest CTs available since early this month, there has been no evidence of new progressive pulmonary infiltrates that would indicate lower respiratory tract infection or exacerbation of pulmonary fibrosis. The latter however cannot be excluded in the absence of previous CTs. Plan: continue with current antibiotic regimen DVT prophylaxis. Have decreased the dose of IV steroids. Will get echocardiogram to assess for pulmonary hypertension; screen for MRSA. Repeat testing for COVID, RSV, influenza. patient will need to return to [facility] for further workup and treatment of her interstitial lung disease. (2) Acute and chronic respiratory failure with hypoxia: Code(s): J96.21 - Acute and chronic respiratory failure with hypoxia Status: Acute History of Present Illness History of Present Illness Consult date: 07/25/22 Chief complaint: Acute on Chronic Respiratory Hypoxia,Pulmonary Fib Narrative: This 71-year-old female was admitted to the hospital with progressively increasing shortness of breath and cough. The patient has history of chronic respiratory failure related to pulmonary fibrosis. The patient used to live in [place] and moved to [place] to live with her daughter approximately 2 months ago. Patient has been diagnosed with pulmonary fibrosis probably idiopathic pulmonary fibrosis approximately 2 years ago. She has been on nintedanib twice daily for the last year, Low-dose prednisone 10 mg daily, and supplemental oxygen usually 4 liters/minute. patient was in her usual state of health until approximately 3 weeks ago when she was seen in the emergency room with shortness of breath and cough. The patient underwent chest CT that showed no pulmonary emboli. She had diffuse pulmonary fibrosis bilaterally and prominent pulmonary arteries. Patient was placed on oral steroid burst and antibiotic. Approximately 1 week ago the patient started to have more coughing and shortness of breath. She had no fever chills hemoptysis night sweats or lower extremity edema. She noticed that oxyhemoglobin saturation had dropped while she was using the usual oxygen flow at 4 liters/minute. Patient was evaluated in the emergency room again and underwent repeat chest CT as part of workup of this hospitalization. in comparison to the chest CT done 3 weeks ago there has been no new infiltrates bilaterally. Patient has been treated with oxygen, nebulized bronchodilators antibiotics and IV steroids for possible respiratory infection and also exacerbation of her pulmonary fibrosis. She was negative for influenza RSV and COVID infections. Currently she has dry coughing and shortness of breath but no fever. She has no chest pain. She has had chronic ort
[2022-07-25] MEDS: guaiFENesin 12 HR 600 MG TABCR PO ×2 (14:45→21:31)
[2022-07-25] MEDS: FAMOTIDINE 20 MG TABLET 40 MG PO (17:50)
[2022-07-25 18:49] LABS: Glucose Point of Care 175 mg/dl (65-105)
[2022-07-25 21:05] LABS: Glucose Point of Care 164 mg/dl (65-105)
[2022-07-25] MEDS: SIMVASTATIN 20 MG TABLET PO (21:31)
[2022-07-25] MEDS: LORATADINE 10 MG TABLET PO (21:31)
[2022-07-26] VITALS (23 sets, daily range): BP systolic 105–153; BP diastolic 64–78; PULSE 77–101; RESP 20–36; TEMP 36–36.7; O2SAT 93–99
[2022-07-26 00:40] LABS: Influenza A QL RT-PCR Negative (Negative); Influenza B QL RT-PCR Negative (Negative); RSV RNA, RT-PCR Negative (Negative); SARS-CoV-2 RNA PCR Negative
[2022-07-26] MEDS: ALBUTEROL SULFATE NEB 2.5 MG/3 ML INH 5 MG INHALATION ×4 (02:22→21:17)
[2022-07-26] MEDS: IPRATROPIUM BR 0.02% INH SOLN 0.5 MG/2.5 ML VIAL INHALATION ×4 (02:22→21:17)
[2022-07-26 05:33] LABS: Basophils Percent Auto 0.1 % (0.2-1.2); Hematocrit 44.2 % (37.0-47.0); Hemoglobin 14.2 g/dL (12.0-15.0); Immature Granulocyte Absolute 0.09 K/mm3 (0.00-0.031); Immature Granulocyte Percent A 0.7 % (0-0.5); Lymphocytes Absolute Auto 0.81 K/mm3 (0.9-3.2); Lymphocytes Percent Auto 6.4 % (18.3-44.2); Mean Corpuscular HGB Conc 32.1 g/dl (32-36); Mean Corpuscular Hemoglobin 31.5 pg (26-34); Mean Platelet Volume 9.2 fl (7.4-10.4); Monocytes Absolute Auto 0.6 K/mm3 (0.1-0.6); Monocytes Percent Auto 4.9 % (2.6-8.5); Neutrophils Absolute Auto 11.1 K/mm3 (1.3-6.7); Neutrophils Percent Auto 87.9 % (45.5-73.1); Platelet Count Result 239 k/mm3 (150-375); Red Blood Count 4.51 M/mm3 (4.2-5.4); Red Cell Distribution Width 13.2 % (11.5-14.5); White Blood Count 12.6 K/mm3 (4.5-10.0)
[2022-07-26 05:40] LABS: Hemoglobin A1C 5.7 % (<5.7)
[2022-07-26 06:00] LABS: Alanine Aminotransferase 48 U/L (6-35); Alkaline Phosphatase 82 U/L (38-126); Anion Gap 8 mmol/L (8-16); Aspartate Amino Transferase 52 U/L (14-36); Bilirubin,Total 1.1 mg/dL (0.2-1.3); Blood Urea Nitrogen 11 mg/dL (7-17); Calcium 9.1 mg/dL (8.4-10.2); Carbon Dioxide 29 mmol/L (22-30); Chloride 101 mmol/L (98-107); Estimated CRCL calculation 94 ml/min; Estimated Glomerular Filt Rate > 60; Glucose 134 mg/dL (65-110); Potassium 3.7 mmol/L (3.4-5.0); Sodium 138 mmol/L (137-145)
[2022-07-26] MEDS: FLUTICASONE PROP 110 MCG INHALER 12 GM (*SP) 2 PUFF INHALATION ×2 (07:55→21:17)
[2022-07-26 07:58] LABS: Glucose Point of Care 115 mg/dl (65-105)
[2022-07-26 11:14] LABS: Alveolar/Arterial O2 Gradient 525.3 mmHg; Base Excess ABG 1.8 mEq/l (+/-2.0); Fractional Inspired Oxygen 100 %; HCO3 ABG 25.4 mEq/l (22.0-26.0); Oxygen Content ABG 20.9 %vol (16.0-22.0); Oxyhemoglobin 97.4 % THb (90.0-100.0); PCO2 ABG 36.9 mmHg (35.0-45.0); PO2 ABG 150.8 mmHg (80.0-100.0); PO2 FiO2 Ratio Arterial Blood 1.51 %; Total Hemoglobin 15.1 g/dL (12.0-18.0); pH ABG 7.456 (7.350-7.450)
[2022-07-26 11:15] LABS: Device NON-REBREATHER MASK; Modified Allen's Test Pass; Site Drawn RIGHT RADIAL
[2022-07-26 11:47] LABS: Glucose Point of Care 91 mg/dl (65-105)
[2022-07-26] MEDS: CHOLECALCIFEROL 1,000 UNITS TABLET 5000 UNITS PO (12:38)
[2022-07-26] MEDS: ASPIRIN 81 MG ENTERIC TABLET PO (12:38)
[2022-07-26] MEDS: FLUCONAZOLE 100 MG TABLET PO (12:38)
[2022-07-26] MEDS: OPTI-GEN TAB 1 TABLET PO ×2 (12:38→17:40)
[2022-07-26] MEDS: FLUoxetine HCL 20 MG CAPSULE 60 MG PO (12:38)
[2022-07-26] MEDS: hydroCHLOROthiazide 12.5 MG CAPSULE PO (12:39)
[2022-07-26] MEDS: guaiFENesin 12 HR 600 MG TABCR PO ×2 (12:39→21:10)
[2022-07-26] MEDS: ENOXAPARIN 40 MG/0.4 ML SYRINGE SUB-Q (12:39)
[2022-07-26] MEDS: NYSTATIN 100,000 UNITS/ML SUSP 5 ML ORAL.SUSP 4 ML PO ×3 (12:39→21:08)
[2022-07-26] MEDS: FUROSEMIDE INJ 40 MG/4 ML VIAL 20 MG IV PUSH (12:39)
[2022-07-26] MEDS: methylPREDNISolone SOD SUCC 125 MG VIAL 60 MG IV PUSH ×2 (12:39→17:41)
[2022-07-26] MEDS: FLUTICASONE PROPIONATE 0.05% NA SPR 16 GM BTL (*BKC) 2 SPRAY NASAL (12:40)
--- NOTE | 2022-07-26 12:56 | PM.PNPUL ---
Progress Note: A&P Assessment and Plan (1) Acute and chronic respiratory failure with hypoxia: Code(s): J96.21 - Acute and chronic respiratory failure with hypoxia Status: Acute Assessment and Plan: 71-year-old female with advanced pulmonary fibrosis who had been on nintedanib treatment presented with worsening shortness of breath. Chest imaging studies available since early this month have shown advance pulmonary fibrosis but no new infiltrates suggestive of lower respiratory tract infection and/or fibrosis exacerbation. Patient is currently on treatment with antibiotic and IV steroids. Her oxygen needs have increased over the last 24 hours for unclear reason. Chest x-ray done this a.m. showed no new infiltrates. The patient is hemodynamically stable.. The patient stated that she will consider hospice care over the next day or so. In fact she wanted to go home on hospice care. because of high FiO2 the patient can only be transferred to in hospital hospice care. that was discussed with the patient, her daughter and also the hospitalist. Plan: continue with symptomatic treatment at this point. Trial of Lasix 20 mg IV. Monitor respiratory status. The patient was made DNR. (2) Pulmonary fibrosis: Code(s): J84.10 - Pulmonary fibrosis, unspecified Status: Acute (3) Hypertension: Code(s): I10 - Essential (primary) hypertension Status: Acute Subjective Date/time seen: 07/26/22 12:56 patient has no new respiratory symptoms but is currently on 35% FiO2 has been receiving treatment with IV steroids antibiotics. Has been hemodynamically stable. Chest x-ray done earlier today showed no new lung infiltrates. Review of Systems Review of Systems: All system review is negative except as noted in HPI and below Exam Narrative: GENERAL APPEARANCE: Well developed, well nourished, alert and cooperative, and appears to be in no mild to moderate respiratory distress while on supplemental oxygen at 10 liters/minute SKIN: Inspection of the skin reveals no rashes, ulcerations or petechiae. HEENT: Sclerae anicteric and conjunctivae pink and moist. Extraocular movements were intact and pupils were equal, round, and reactive to light. The oral mucosa, hard and soft palate, tongue and posterior pharynx were normal. NECK: Supple. There was no thyroid enlargement, and no tenderness, or masses were felt. CHEST: Normal AP diameter and normal contour without any kyphoscoliosis. LUNGS: Auscultation of the lungs diffuse crackles bilaterally, no wheezing CARDIAC: There was a regular rate and rhythm without any murmurs. ABDOMEN: Soft and nontender with normal bowel sounds. There was no organomegaly. LYMPH NODES: No lymphadenopathy was appreciated in the neck. EXTREMITIES: No cyanosis, clubbing or edema. NEUROLOGIC: Alert and oriented x 3. Normal affect. Objective Data Vital Signs Vital Signs: Vital Signs - 24 hr 07/25/22 14:34 07/25/22 14:55 07/25/22 16:00 Temperature 36.3 C L Pulse Rate 76 94 90 Respiratory Rate 20 20 24 H Blood Pressure 137/71 Pulse Oximetry 94 Oxygen Delivery Oxygen Flow Rate Fraction of Inspired Oxygen 07/25/22 14:00 07/25/22 16:00 07/25/22 16:00 Temperature Pulse Rate 90 91 84 Respiratory Rate 18 Blood Pressure Pulse Oximetry 94 Oxygen Delivery High Flow Nasal Cannula Oxygen Flow Rate 9 Fraction of Inspired Oxygen 07/25/22 18:00 07/25/22 20:00 07/25/22 21:36 Temperature 36.8 C Pulse Rate 89 89 Respiratory Rate 24 H Blood Pressure 143/77 H Pulse Oximetry 93 90 Oxygen Delivery High Flow Nasal Cannula Oxygen Flow Rate 9 Fraction of Inspired Oxygen 07/25/22 21:37 07/26/22 00:00 07/26/22 02:24 Temperature 36.3 C L Pulse Rate 89 100 90 Respiratory Rate 20 24 H 20 Blood Pressure 145/65 H Pulse Oximetry 93 Oxygen Delivery Oxygen Flow Rate Fraction of Inspired Oxygen 07/25/22 21:51 07/25/22
--- NOTE | 2022-07-26 13:26 | PM.IMPN ---
Progress Note: A&P Assessment and Plan (1) Acute and chronic respiratory failure with hypoxia: Code(s): J96.21 - Acute and chronic respiratory failure with hypoxia Status: Acute Assessment and Plan: Advanced pulmonary fibrosis noted, no active infection seen, appreciate pulmonology consultation Continue steroids, supportive care (2) Pulmonary fibrosis: Code(s): J84.10 - Pulmonary fibrosis, unspecified Status: Acute (3) Hypertension: Code(s): I10 - Essential (primary) hypertension Status: Acute Plan 07/26: Extensive discussion had with family regarding patient's prognosis. Do not think that hospice is appropriate at this time, but is definitely something to consider in the near future. I agree with code status to DNR. Would like to give the patient a few more days on IV steroids and supportive care to see if we can get her back to her baseline 4 L at home. If over the next few days, she continued to deteriorate, would agree that hospice is appropriate as the patient's pulmonary fibrosis progressing is likely the etiology. Patient is not interested in a lung transplantation which is the only definitive treatment pulmonology would recommend in this case. DVT prophylaxis with Lovenox GI prophylaxis with PPI Code status full code Subjective Date/time seen: 07/26/22 13:26 Interval history: Patient more short of breath. She states she is ready for hospice and wants to go home to be with her family. No overnight events. No chest pain. No nausea vomiting or diarrhea. She is also requesting to be a DNR. Review of Systems Review of Systems: 12 point review of systems was assessed and was negative except as noted in the HPI Exam Narrative: General: No acute distress, alert and oriented per baseline HEENT: Atraumatic, normocephalic, mucous membranes moist CV: Regular rate and rhythm, S1, S2 Lungs: Diminished throughout Abdomen: Soft, nontender, nondistended Extremities: Normal to inspection Skin: No rashes noted, no lesions or wounds seen Psych: Euthymic, normal affect Objective Data Vital Signs Vital Signs: Vital Signs - 24 hr 07/25/22 14:34 07/25/22 14:55 07/25/22 16:00 Temperature 97.3 F L Pulse Rate 76 94 90 Respiratory Rate 20 20 24 H Blood Pressure 137/71 Pulse Oximetry 94 Oxygen Delivery Oxygen Flow Rate Fraction of Inspired Oxygen 07/25/22 14:00 07/25/22 16:00 07/25/22 16:00 Temperature Pulse Rate 90 91 84 Respiratory Rate 18 Blood Pressure Pulse Oximetry 94 Oxygen Delivery High Flow Nasal Cannula Oxygen Flow Rate 9 Fraction of Inspired Oxygen 07/25/22 18:00 07/25/22 20:00 07/25/22 21:36 Temperature 98.2 F Pulse Rate 89 89 Respiratory Rate 24 H Blood Pressure 143/77 H Pulse Oximetry 93 90 Oxygen Delivery High Flow Nasal Cannula Oxygen Flow Rate 9 Fraction of Inspired Oxygen 07/25/22 21:37 07/26/22 00:00 07/26/22 02:24 Temperature 97.4 F L Pulse Rate 89 100 90 Respiratory Rate 20 24 H 20 Blood Pressure 145/65 H Pulse Oximetry 93 Oxygen Delivery Oxygen Flow Rate Fraction of Inspired Oxygen 07/25/22 21:51 07/25/22 20:00 07/25/22 22:00 Temperature Pulse Rate 92 88 103 H Respiratory Rate 20 Blood Pressure Pulse Oximetry Oxygen Delivery Oxygen Flow Rate Fraction of Inspired Oxygen 07/26/22 00:00 07/26/22 02:00 07/25/22 20:00 Temperature Pulse Rate 96 83 Respiratory Rate Blood Pressure Pulse Oximetry 93 Oxygen Delivery High Flow Nasal Cannula Oxygen Flow Rate 9 Fraction of Inspired Oxygen 07/26/22 00:00 07/26/22 04:00 07/26/22 04:00 Temperature 97.5 F L Pulse Rate 97 98 Respiratory Rate 20 Blood Pressure 146/77 H Pulse Oximetry 93 99 Oxygen Delivery High Flow Nasal Cannula Oxygen Flow Rate 9 Fraction of Inspired Oxygen 07/26/22 04:00 07/26/22 06:00 07/26/22 07:40 Temperature
--- NOTE | 2022-07-26 15:05 | PHAR ---
The patient's home med of Nintedanib (Ofev) 150mg has been verified by Pharmacist.
[2022-07-26 16:40] LABS: Glucose Point of Care 125 mg/dl (65-105)
[2022-07-26] MEDS: FAMOTIDINE 20 MG TABLET 40 MG PO (17:40)
[2022-07-26 20:46] LABS: Glucose Point of Care 163 mg/dl (65-105)
[2022-07-26] MEDS: ACETAMINOPHEN 325 MG TABLET 650 MG PO (21:08)
[2022-07-26] MEDS: LORATADINE 10 MG TABLET PO (21:10)
[2022-07-26] MEDS: diphenhydrAMINE HCl CAP 25 MG CAPSULE PO (21:10)
[2022-07-26] MEDS: SIMVASTATIN 20 MG TABLET PO (21:11)
[2022-07-27] VITALS (24 sets, daily range): BP systolic 126–147; BP diastolic 64–75; PULSE 64–115; RESP 18–48; TEMP 36.3–36.8; O2SAT 77–98
[2022-07-27] MEDS: IPRATROPIUM BR 0.02% INH SOLN 0.5 MG/2.5 ML VIAL INHALATION ×4 (02:53→20:00)
[2022-07-27] MEDS: ALBUTEROL SULFATE NEB 2.5 MG/3 ML INH 5 MG INHALATION ×4 (02:53→19:59)
[2022-07-27 08:25] LABS: Glucose Point of Care 112 mg/dl (65-105)
--- NOTE | 2022-07-27 09:18 | PM.PNPUL ---
Progress Note: A&P Assessment and Plan (1) Acute and chronic respiratory failure with hypoxia: Code(s): J96.21 - Acute and chronic respiratory failure with hypoxia Status: Acute Assessment and Plan: 71-year-old female with advanced pulmonary fibrosis who had been on nintedanib treatment presented with worsening shortness of breath. Chest imaging studies available since early this month have shown advanced pulmonary fibrosis but no new infiltrates suggestive of lower respiratory tract infection and/or fibrosis exacerbation. Patient is currently on treatment with antibiotic and IV steroids. Her oxygen needs have increased over the last 48 hours for unclear reason. Chest x-ray done yesterday. showed no new infiltrates. patient has shortness of breath is better today although she remains on same FiO2. Plan: continue with symptomatic treatment at this point. Lasix 20 mg IV again today. Monitor respiratory status. I have decreased IV steroids. Repeat chest x-ray in a.m. The patient is now DNR. (2) Pulmonary fibrosis: Code(s): J84.10 - Pulmonary fibrosis, unspecified Status: Acute (3) Hypertension: Code(s): I10 - Essential (primary) hypertension Status: Acute Subjective Date/time seen: 07/27/22 09:18 patient stated she is feeling better today. Still remaining on relatively high FiO2. Afebrile, coughing as before, less shortness of breath today. Had good diuresis following IV Lasix yesterday. Review of Systems Review of Systems: 12 point review of systems was assessed and was negative except as noted in the HPI Exam Narrative: GENERAL APPEARANCE: Well developed, well nourished, alert and cooperative, and appears to be in no mild to moderate respiratory distress while on high-flow nasal cannula SKIN: Inspection of the skin reveals no rashes, ulcerations or petechiae. HEENT: Sclerae anicteric and conjunctivae pink and moist. Extraocular movements were intact and pupils were equal, round, and reactive to light. The oral mucosa, hard and soft palate, tongue and posterior pharynx were normal. NECK: Supple. There was no thyroid enlargement, and no tenderness, or masses were felt. CHEST: Normal AP diameter and normal contour without any kyphoscoliosis. LUNGS: Auscultation of the lungs diffuse crackles bilaterally, no wheezing CARDIAC: There was a regular rate and rhythm without any murmurs. ABDOMEN: Soft and nontender with normal bowel sounds. There was no organomegaly. LYMPH NODES: No lymphadenopathy was appreciated in the neck. EXTREMITIES: No cyanosis, clubbing or edema. NEUROLOGIC: Alert and oriented x 3. Normal affect. Objective Data Vital Signs Vital Signs: Vital Signs - 24 hr 07/26/22 10:55 07/26/22 10:58 07/26/22 12:00 Temperature 36.4 C Pulse Rate 88 Respiratory Rate 36 H Blood Pressure 153/78 H Pulse Oximetry 99 97 98 Oxygen Delivery High Flow Nasal Cannula High Flow Therapy with Na Oxygen Flow Rate 15 35 Fraction of Inspired Oxygen 75 07/26/22 10:00 07/26/22 12:00 07/26/22 12:00 Temperature Pulse Rate 90 86 81 Respiratory Rate 36 H Blood Pressure Pulse Oximetry 98 Oxygen Delivery High Flow Therapy with Na Oxygen Flow Rate 35 Fraction of Inspired Oxygen 75 07/26/22 13:29 07/26/22 13:49 07/26/22 14:00 Temperature Pulse Rate 94 90 82 Respiratory Rate 24 H 24 H Blood Pressure Pulse Oximetry Oxygen Delivery Oxygen Flow Rate Fraction of Inspired Oxygen 07/26/22 16:00 07/26/22 16:00 07/26/22 16:00 Temperature 36.6 C Pulse Rate 87 80 Respiratory Rate 32 H Blood Pressure 105/65 Pulse Oximetry 96 97 Oxygen Delivery High Flow Therapy with Na Oxygen Flow Rate 35 Fraction of Inspired Oxygen 65 07/26/22 18:00 07/26/22 20:00 07/26/22 21:23 Temperature 36.7 C Pulse Rate 81 80 77 Respiratory Rate 20 20 Blood Pressure 146/71 H Pulse Oximetry 94 Oxygen Delivery Oxygen Fl
[2022-07-27] MEDS: FUROSEMIDE INJ 40 MG/4 ML VIAL 20 MG IV PUSH (10:00)
[2022-07-27] MEDS: guaiFENesin 12 HR 600 MG TABCR PO ×2 (10:01→21:43)
[2022-07-27] MEDS: OPTI-GEN TAB 1 TABLET PO ×2 (10:01→19:08)
[2022-07-27] MEDS: ASPIRIN 81 MG ENTERIC TABLET PO (10:01)
[2022-07-27] MEDS: FLUCONAZOLE 100 MG TABLET PO (10:01)
[2022-07-27] MEDS: hydroCHLOROthiazide 12.5 MG CAPSULE PO (10:02)
[2022-07-27] MEDS: FLUoxetine HCL 20 MG CAPSULE 60 MG PO (10:02)
[2022-07-27] MEDS: PANTOPRAZOLE SODIUM IV 40 MG VIAL IV PUSH (10:02)
[2022-07-27] MEDS: ENOXAPARIN 40 MG/0.4 ML SYRINGE SUB-Q (10:02)
[2022-07-27] MEDS: CHOLECALCIFEROL 1,000 UNITS TABLET 5000 UNITS PO (10:02)
[2022-07-27] MEDS: NYSTATIN 100,000 UNITS/ML SUSP 5 ML ORAL.SUSP 4 ML PO ×4 (10:02→21:45)
[2022-07-27] MEDS: FLUTICASONE PROPIONATE 0.05% NA SPR 16 GM BTL (*BKC) 2 SPRAY NASAL (10:03)
[2022-07-27 11:37] LABS: Glucose Point of Care 139 mg/dl (65-105)
[2022-07-27 12:05] LABS: NT Pro B Type Natriuretic Pept 137 pg/mL (5-100)
[2022-07-27] MEDS: methylPREDNISolone SOD SUCC 125 MG VIAL 60 MG IV PUSH (12:26)
--- NOTE | 2022-07-27 12:33 | PC.NURSE ---
At 1215 patient assisted to a bedside commode. Patient became short of breath with activity breathing 48 breaths per minute. Patient on high flow nasal cannula oxygen therapy at 35L with 50% FiO2. Patient began to desat to 77% and cough became worse and continuous until patient was having difficulty catching her breath. Patient was grunting during respirations and using accessory muscles. Patient assisted back to bed by this RN and a tech. 15 L non-rebreather applied on top of high flow nasal cannula therapy. This nurse monitoring patient symptoms at bedside. SpO2 now noted at 95% at 1238. 15L non-rebreather removed and patient remains on high flow nasal cannula at 35L and 50%FiO2. Nurses to continue to monitor.
--- NOTE | 2022-07-27 15:51 | PM.IMPN ---
Progress Note: A&P Assessment and Plan (1) Acute and chronic respiratory failure with hypoxia: Code(s): J96.21 - Acute and chronic respiratory failure with hypoxia Status: Acute Assessment and Plan: Advanced pulmonary fibrosis noted, no active infection seen, appreciate pulmonology consultation Continue steroids, supportive care, slowly improving Hospice care has been discussed, this is not unreasonable, awaiting pulmonology recommendations regarding whether this is a flare or progression of the disease, they are planning to compare old images with new images and monitor response to current treatment (2) Pulmonary fibrosis: Code(s): J84.10 - Pulmonary fibrosis, unspecified Status: Acute (3) Hypertension: Code(s): I10 - Essential (primary) hypertension Status: Acute Plan 07/26: Extensive discussion had with family regarding patient's prognosis. Do not think that hospice is appropriate at this time, but is definitely something to consider in the near future. I agree with code status to DNR. Would like to give the patient a few more days on IV steroids and supportive care to see if we can get her back to her baseline 4 L at home. If over the next few days, she continued to deteriorate, would agree that hospice is appropriate as the patient's pulmonary fibrosis progressing is likely the etiology. Patient is not interested in a lung transplantation which is the only definitive treatment pulmonology would recommend in this case. DVT prophylaxis with Lovenox GI prophylaxis with PPI Code status full code Subjective Date/time seen: 07/27/22 15:51 Interval history: No overnight events noted. No nausea, vomiting or diarrhea. No fevers or chills. Patient did have constipation with a little bit of bright red blood on the toilet paper, she states this is baseline for her to do her hemorrhoids and hard stool. Patient had significant episode of shortness of breath and difficulty breathing with minimal exertion. Review of Systems Review of Systems: 12 point review of systems was assessed and was negative except as noted in the HPI Exam Narrative: General: No acute distress, alert and oriented per baseline HEENT: Atraumatic, normocephalic, mucous membranes moist CV: Regular rate and rhythm, S1, S2 Lungs: Diminished throughout, no wheeze or rhonchi noted Abdomen: Soft, nontender, nondistended Extremities: Normal to inspection Skin: No rashes noted, no lesions or wounds seen Psych: Euthymic, normal affect Objective Data Vital Signs Vital Signs: Vital Signs - 24 hr 07/26/22 16:00 07/26/22 16:00 07/26/22 16:00 Temperature 97.8 F Pulse Rate 87 80 Respiratory Rate 32 H Blood Pressure 105/65 Pulse Oximetry 96 97 Oxygen Delivery High Flow Therapy with Na Oxygen Flow Rate 35 Fraction of Inspired Oxygen 65 07/26/22 18:00 07/26/22 20:00 07/26/22 21:23 Temperature 98.1 F Pulse Rate 81 80 77 Respiratory Rate 20 20 Blood Pressure 146/71 H Pulse Oximetry 94 Oxygen Delivery Oxygen Flow Rate Fraction of Inspired Oxygen 07/26/22 21:24 07/26/22 21:40 07/26/22 20:00 Temperature Pulse Rate 81 81 Respiratory Rate 20 Blood Pressure Pulse Oximetry 97 Oxygen Delivery High Flow Therapy with Na Oxygen Flow Rate 35 Fraction of Inspired Oxygen 55 07/26/22 20:00 07/26/22 22:00 07/27/22 00:00 Temperature 97.8 F Pulse Rate 89 75 Respiratory Rate 20 Blood Pressure 128/69 Pulse Oximetry 94 97 Oxygen Delivery High Flow Therapy with Na Oxygen Flow Rate 35 Fraction of Inspired Oxygen 55 07/27/22 00:00 07/27/22 00:00 07/27/22 02:00 Temperature Pulse Rate 72 66 Respiratory Rate Blood Pressure Pulse Oximetry 97 Oxygen Delivery High Flow Therapy with Na Oxygen Flow Rate 35 Fraction of Inspired Oxygen 55 07/27/22 02:56 07/27/22 02:57 07/27/22 03:12 Temperature Pulse Rate 77 78 Re
[2022-07-27 16:49] LABS: Glucose Point of Care 150 mg/dl (65-105)
--- NOTE | 2022-07-27 17:51 | PCRCNOTE ---
Window of time for administration has passed. See next scheduled administration.
[2022-07-27] MEDS: HYDROcodone/acetaminophen (*CRX) 5-325 MG TABLET 1 TAB PO (19:06)
[2022-07-27] MEDS: FAMOTIDINE 20 MG TABLET 40 MG PO (19:08)
[2022-07-27] MEDS: FLUTICASONE PROP 110 MCG INHALER 12 GM (*SP) 2 PUFF INHALATION (20:00)
[2022-07-27 20:18] LABS: Glucose Point of Care 193 mg/dl (65-105)
[2022-07-27] MEDS: ACETAMINOPHEN 325 MG TABLET 650 MG PO (21:42)
[2022-07-27] MEDS: diphenhydrAMINE HCl CAP 25 MG CAPSULE PO (21:43)
[2022-07-27] MEDS: LORATADINE 10 MG TABLET PO (21:44)
[2022-07-27] MEDS: SIMVASTATIN 20 MG TABLET PO (21:45)
[2022-07-28] VITALS (25 sets, daily range): BP systolic 116–136; BP diastolic 60–78; PULSE 64–100; RESP 18–28; TEMP 36.1–36.9; O2SAT 90–98
[2022-07-28] MEDS: ALBUTEROL SULFATE NEB 2.5 MG/3 ML INH 5 MG INHALATION ×4 (01:44→19:48)
[2022-07-28] MEDS: IPRATROPIUM BR 0.02% INH SOLN 0.5 MG/2.5 ML VIAL INHALATION ×4 (01:44→19:48)
[2022-07-28] MEDS: FLUTICASONE PROP 110 MCG INHALER 12 GM (*SP) 2 PUFF INHALATION ×2 (07:36→19:48)
[2022-07-28 08:35] LABS: Glucose Point of Care 114 mg/dl (65-105)
--- NOTE | 2022-07-28 09:17 | PM.IMPN ---
Progress Note: A&P Assessment and Plan (1) Acute and chronic respiratory failure with hypoxia: Code(s): J96.21 - Acute and chronic respiratory failure with hypoxia Status: Acute Assessment and Plan: Advanced pulmonary fibrosis noted, no active infection seen, appreciate pulmonology consultation Continue steroids, supportive care, minimal improvement 07/26: Hospice care has been discussed, this is not unreasonable, awaiting pulmonology recommendations regarding whether this is a flare or progression of the disease, they are planning to compare old images with new images and monitor response to current treatment 07/27: Would recommend hospice care. Repeat imaging showing no change. Supportive care and steroids showing no improvement. Suspect her symptoms are secondary to disease progression. Patient refusing lung transplant, which is reasonable. Will discuss with family and place consult to hospice to explore options. Defer to pulm for final recs. 07/28: Continues to improve, suspect hospice would be appropriate at discharge. Continue current management, goal of getting patient weaned to 5 L nc so she can go home with hospice. (2) Pulmonary fibrosis: Code(s): J84.10 - Pulmonary fibrosis, unspecified Status: Acute Assessment and Plan: as above (3) Hypertension: Code(s): I10 - Essential (primary) hypertension Status: Acute Assessment and Plan: stable Plan 07/26: Extensive discussion had with family regarding patient's prognosis. Do not think that hospice is appropriate at this time, but is definitely something to consider in the near future. I agree with code status to DNR. Would like to give the patient a few more days on IV steroids and supportive care to see if we can get her back to her baseline 4 L at home. If over the next few days, she continued to deteriorate, would agree that hospice is appropriate as the patient's pulmonary fibrosis progressing is likely the etiology. Patient is not interested in a lung transplantation which is the only definitive treatment pulmonology would recommend in this case. DVT prophylaxis with Lovenox GI prophylaxis with PPI Code status full code Subjective Date/time seen: 07/28/22 09:17 Interval history: No overnight events noted. No nausea, vomiting or diarrhea. No fevers or chills. Review of Systems Review of Systems: 12 point review of systems was assessed and was negative except as noted in the HPI Exam Narrative: General: No acute distress, alert and oriented per baseline HEENT: Atraumatic, normocephalic, mucous membranes moist CV: Regular rate and rhythm, S1, S2 Lungs: Diminished throughout, no wheeze or rhonchi noted Abdomen: Soft, nontender, nondistended Extremities: Normal to inspection Skin: No rashes noted, no lesions or wounds seen Psych: Euthymic, normal affect Objective Data Vital Signs Vital Signs: Vital Signs - 24 hr 07/27/22 12:00 07/27/22 12:15 07/27/22 12:00 Temperature 97.4 F L Pulse Rate 100 Respiratory Rate 48 H 28 H Blood Pressure 147/64 H Pulse Oximetry 91 77 L 95 Oxygen Delivery High Flow Therapy with Na High Flow Therapy with Na Oxygen Flow Rate 35 35 Fraction of Inspired Oxygen 50 50 07/27/22 10:00 07/27/22 12:00 07/27/22 14:00 Temperature Pulse Rate 87 115 H 82 Respiratory Rate Blood Pressure Pulse Oximetry Oxygen Delivery Oxygen Flow Rate Fraction of Inspired Oxygen 07/27/22 16:00 07/27/22 16:00 07/27/22 17:38 Temperature 98.0 F Pulse Rate 94 98 Respiratory Rate 28 H Blood Pressure 126/66 Pulse Oximetry 95 98 Oxygen Delivery High Flow Therapy with Na Oxygen Flow Rate 35 Fraction of Inspired Oxygen 50 07/27/22 15:30 07/27/22 15:40 07/27/22 16:00 Temperature Pulse Rate 83 75 Respiratory Rate 18 18 Blood Pressure Pulse Oximetry 98 Oxygen Delivery High Flow Therapy with Na Oxygen Flow Rate
[2022-07-28] MEDS: PANTOPRAZOLE SODIUM IV 40 MG VIAL IV PUSH (09:22)
[2022-07-28] MEDS: OPTI-GEN TAB 1 TABLET PO ×2 (09:22→17:21)
[2022-07-28] MEDS: NYSTATIN 100,000 UNITS/ML SUSP 5 ML ORAL.SUSP 4 ML PO ×4 (09:22→21:05)
[2022-07-28] MEDS: hydroCHLOROthiazide 12.5 MG CAPSULE PO (09:23)
[2022-07-28] MEDS: FLUoxetine HCL 20 MG CAPSULE 60 MG PO (09:25)
[2022-07-28] MEDS: FLUTICASONE PROPIONATE 0.05% NA SPR 16 GM BTL (*BKC) 2 SPRAY NASAL (09:25)
[2022-07-28] MEDS: guaiFENesin 12 HR 600 MG TABCR PO ×2 (09:25→21:05)
[2022-07-28] MEDS: FLUCONAZOLE 100 MG TABLET PO (09:26)
[2022-07-28] MEDS: CHOLECALCIFEROL 1,000 UNITS TABLET 5000 UNITS PO (09:26)
[2022-07-28] MEDS: ASPIRIN 81 MG ENTERIC TABLET PO (09:26)
[2022-07-28] MEDS: ENOXAPARIN 40 MG/0.4 ML SYRINGE SUB-Q (09:26)
[2022-07-28] MEDS: methylPREDNISolone SOD SUCC 125 MG VIAL 60 MG IV PUSH (09:31)
--- NOTE | 2022-07-28 10:24 | PM.PNPUL ---
Progress Note: A&P Assessment and Plan (1) Acute and chronic respiratory failure with hypoxia: Code(s): J96.21 - Acute and chronic respiratory failure with hypoxia Status: Acute Assessment and Plan: 71-year-old female with advanced pulmonary fibrosis who had been on nintedanib treatment presented with worsening shortness of breath. Chest imaging studies available since early this month have shown advanced pulmonary fibrosis but no new infiltrates suggestive of lower respiratory tract infection and/or fibrosis exacerbation. Patient is currently on treatment with antibiotic and IV steroids. Her oxygen needs have been stable over the last 2 hours for unclear reason. Chest x-ray done today. showed no new infiltrates. Has received Lasix 20 mg I have a for 2 days. BNP not elevated.patient has shortness of breath is better today although she remains on same FiO2. Plan: continue with symptomatic treatment at this point. Monitor respiratory status. Will lower FIO2. out of bed to chair. Hold Lasix IV at this point. (2) Pulmonary fibrosis: Code(s): J84.10 - Pulmonary fibrosis, unspecified Status: Acute (3) Hypertension: Code(s): I10 - Essential (primary) hypertension Status: Acute Subjective Date/time seen: 07/28/22 10:24 patient feeling better compared to couple days ago. She has no fever. Dry cough as before. Spent most of the day in bed. Still on high-flow nasal cannula. Review of Systems Review of Systems: 12 point review of systems was assessed and was negative except as noted in the HPI Exam Narrative: GENERAL APPEARANCE: Well developed, well nourished, alert and cooperative, and appears to be in no mild to moderate respiratory distress while on high-flow nasal cannula SKIN: Inspection of the skin reveals no rashes, ulcerations or petechiae. HEENT: Sclerae anicteric and conjunctivae pink and moist. Extraocular movements were intact and pupils were equal, round, and reactive to light. The oral mucosa, hard and soft palate, tongue and posterior pharynx were normal. NECK: Supple. There was no thyroid enlargement, and no tenderness, or masses were felt. CHEST: Normal AP diameter and normal contour without any kyphoscoliosis. LUNGS: Auscultation of the lungs diffuse crackles bilaterally, no wheezing CARDIAC: There was a regular rate and rhythm without any murmurs. ABDOMEN: Soft and nontender with normal bowel sounds. There was no organomegaly. LYMPH NODES: No lymphadenopathy was appreciated in the neck. EXTREMITIES: No cyanosis, clubbing or edema. NEUROLOGIC: Alert and oriented x 3. Normal affect. Objective Data Vital Signs Vital Signs: Vital Signs - 24 hr 07/27/22 12:00 07/27/22 12:15 07/27/22 12:00 Temperature 36.3 C L Pulse Rate 100 Respiratory Rate 48 H 28 H Blood Pressure 147/64 H Pulse Oximetry 91 77 L 95 Oxygen Delivery High Flow Therapy with Na High Flow Therapy with Na Oxygen Flow Rate 35 35 Fraction of Inspired Oxygen 50 50 07/27/22 12:00 07/27/22 14:00 07/27/22 16:00 Temperature Pulse Rate 115 H 82 94 Respiratory Rate Blood Pressure Pulse Oximetry Oxygen Delivery Oxygen Flow Rate Fraction of Inspired Oxygen 07/27/22 16:00 07/27/22 17:38 07/27/22 15:30 Temperature 36.7 C Pulse Rate 98 83 Respiratory Rate 28 H 18 Blood Pressure 126/66 Pulse Oximetry 95 98 Oxygen Delivery High Flow Therapy with Na Oxygen Flow Rate 35 Fraction of Inspired Oxygen 50 07/27/22 15:40 07/27/22 16:00 07/27/22 18:00 Temperature Pulse Rate 75 92 Respiratory Rate 18 Blood Pressure Pulse Oximetry 98 Oxygen Delivery High Flow Therapy with Na Oxygen Flow Rate 35 Fraction of Inspired Oxygen 50 07/27/22 20:01 07/27/22 20:01 07/27/22 20:00 Temperature 36.6 C Pulse Rate 89 81 Respiratory Rate 20 20 Blood Pressure 129/75 Pulse Oximetry 98 95 Oxygen Delivery High Flow Therapy with Na
[2022-07-28 11:40] LABS: Glucose Point of Care 114 mg/dl (65-105)
[2022-07-28 16:09] LABS: Glucose Point of Care 200 mg/dl (65-105)
[2022-07-28] MEDS: FAMOTIDINE 20 MG TABLET 40 MG PO (17:22)
[2022-07-28] MEDS: DOCUSATE SODIUM 100 MG CAPSULE PO (17:22)
[2022-07-28] MEDS: BENZONATATE 100 MG CAPSULE 200 MG PO (18:47)
[2022-07-28] MEDS: PANTOPRAZOLE 40 MG TABLET PO (18:48)
[2022-07-28 19:58] LABS: Glucose Point of Care 154 mg/dl (65-105)
[2022-07-28] MEDS: diphenhydrAMINE HCl CAP 25 MG CAPSULE PO (21:05)
[2022-07-28] MEDS: ACETAMINOPHEN 325 MG TABLET 650 MG PO (21:05)
[2022-07-28] MEDS: MELATONIN 5 MG TABLET PO (21:05)
[2022-07-28] MEDS: SIMVASTATIN 20 MG TABLET PO (21:07)
[2022-07-28] MEDS: LORATADINE 10 MG TABLET PO (21:07)
[2022-07-29] VITALS (26 sets, daily range): BP systolic 125–140; BP diastolic 62–80; PULSE 65–94; RESP 18–24; TEMP 36–36.6; O2SAT 91–99
--- NOTE | 2022-07-29 | ECHO_ITS ---
Patient Info Name: Cheyenne Santos Age: 71 years : 1950 Gender: Female Ht: 70 in Wt: 231 lbs BSA: 2.31 m2 HR: 87 bpm BP: 138 / 72 mmHg Heart Rhythm: Sinus Rhythm Technical Quality: Fair Exam Date: 07/29/2022 1:57 PM Exam Location: [facility] Pulmonary Patient Status: Inpatient Admit Date: 07/25/2022 Staff Ordering Physician: Boom Ugalde MD Dental Assistant Medical Assistant: Natalie Rubio RDCS Attending Provider: Boom Ugalde MD Exam Type: CA echo doppler color flow Study Info Indications R06.02 - Shortness of breath Complete two-dimensional, color flow and Doppler transthoracic echocardiogram is performed. Summary 1. Complete two-dimensional, color flow and Doppler transthoracic echocardiogram is performed. 2. Technically difficult study with limited views. Regional wall motion assessment limited due to poor endomyocardial border definition. 3. Left ventricular chamber dimension is normal. 4. Left ventricular systolic function is normal, estimated at 60-65%. 5. There is no increased left ventricular wall thickness. 6. The left ventricular diastolic function is grade I diastolic dysfunction. 7. The tricuspid valve leaflets are probably normal although not well visualized in several views. Unable to characterize regurgitation. 8. Unable to estimate PA systolic pressure due to poor spectral resolution of tricuspid regurgitant jet velocity. Left Ventricle Left ventricular chamber dimension is normal. Left ventricular systolic function is normal, estimated at 60-65%. There is no increased left ventricular wall thickness. The left ventricular diastolic function is grade I diastolic dysfunction. Technically difficult study with limited views. Regional wall motion assessment limited due to poor endomyocardial border definition. Right Ventricle Right ventricular chamber dimension is normal. Right ventricular systolic function is normal. Left Atria Left atrial chamber dimension is normal. Right Atria Right atrial chamber dimension is normal. Aortic Valve The aortic valve is not well visualized. There is no aortic valve stenosis. Pulmonic Valve The pulmonic valve is not well visualized. Mitral Valve The mitral valve has thickened leaflets. There is no mitral valve regurgitation. The mitral valve annulus is moderately calcified. Tricuspid Valve The tricuspid valve leaflets are probably normal although not well visualized in several views. Unable to characterize regurgitation. Unable to estimate PA systolic pressure due to poor spectral resolution of tricuspid regurgitant jet velocity. Pericardium/Pleural The pericardium appears normal. There is trivial pericardial effusion. Aorta The aortic root size at the sinus of Valsalva is normal. The prox ascending aorta size is normal. Left Ventricular Outflow Tract Name Value Normal LVOT 2D LVOT Diameter 2.0 cm LVOT Doppler LVOT Peak Gradient 2 mmHg LVOT Mean Gradient 1 mmHg LVOT VTI 14 cm LVOT VTI/AV VTI Ratio 0.8 LVOT S
[2022-07-29] MEDS: IPRATROPIUM BR 0.02% INH SOLN 0.5 MG/2.5 ML VIAL INHALATION ×4 (01:40→20:03)
[2022-07-29] MEDS: ALBUTEROL SULFATE NEB 2.5 MG/3 ML INH 5 MG INHALATION ×4 (01:40→20:03)
[2022-07-29] MEDS: FLUTICASONE PROP 110 MCG INHALER 12 GM (*SP) 2 PUFF INHALATION ×2 (08:16→20:03)
[2022-07-29 08:32] LABS: Glucose Point of Care 101 mg/dl (65-105)
[2022-07-29] MEDS: ASPIRIN 81 MG ENTERIC TABLET PO (09:09)
[2022-07-29] MEDS: BENZONATATE 100 MG CAPSULE 200 MG PO ×3 (09:09→17:23)
[2022-07-29] MEDS: OPTI-GEN TAB 1 TABLET PO ×2 (09:10→17:24)
[2022-07-29] MEDS: CHOLECALCIFEROL 1,000 UNITS TABLET 5000 UNITS PO (09:10)
[2022-07-29] MEDS: guaiFENesin 12 HR 600 MG TABCR PO ×2 (09:10→20:58)
[2022-07-29] MEDS: hydroCHLOROthiazide 12.5 MG CAPSULE PO (09:10)
[2022-07-29] MEDS: NYSTATIN 100,000 UNITS/ML SUSP 5 ML ORAL.SUSP 4 ML PO ×4 (09:11→20:59)
[2022-07-29] MEDS: FLUoxetine HCL 20 MG CAPSULE 60 MG PO (09:11)
[2022-07-29] MEDS: ENOXAPARIN 40 MG/0.4 ML SYRINGE SUB-Q (09:11)
[2022-07-29] MEDS: PANTOPRAZOLE 40 MG TABLET PO (09:12)
[2022-07-29] MEDS: FLUCONAZOLE 100 MG TABLET PO (09:12)
[2022-07-29] MEDS: FLUTICASONE PROPIONATE 0.05% NA SPR 16 GM BTL (*BKC) 2 SPRAY NASAL (09:14)
--- NOTE | 2022-07-29 09:17 | PM.PNPUL ---
Progress Note: A&P Assessment and Plan (1) Acute and chronic respiratory failure with hypoxia: Code(s): J96.21 - Acute and chronic respiratory failure with hypoxia Status: Acute Assessment and Plan: 71-year-old female with advanced pulmonary fibrosis who had been on nintedanib treatment presented with worsening shortness of breath. Chest imaging studies available since early this month have shown advanced pulmonary fibrosis but no new infiltrates suggestive of lower respiratory tract infection and/or fibrosis exacerbation. Patient is currently on treatment with antibiotic and IV steroids. FiO2 lower over the last couple of days. Patient change her mind about going on hospice care. She would like to have visiting nurse at home. Plan: Switch patient to oral steroids, home oxygen evaluation before DC home, upgrade home oxygen concentrator to deliver up to 10 liters/minute as patient desaturates on oxygen flow 5 liters/minute. (2) Pulmonary fibrosis: Code(s): J84.10 - Pulmonary fibrosis, unspecified Status: Acute (3) Hypertension: Code(s): I10 - Essential (primary) hypertension Status: Acute Subjective Date/time seen: 07/29/22 09:17 Patient has no new respiratory symptoms. She stated she feels better today. FiO2 down to 6 liters/minute. Review of Systems Review of Systems: 12 point review of systems was assessed and was negative except as noted in the HPI Exam Narrative: GENERAL APPEARANCE: Well developed, well nourished, alert and cooperative, and appears to be in no mild to moderate respiratory distress while on high-flow nasal cannula SKIN: Inspection of the skin reveals no rashes, ulcerations or petechiae. HEENT: Sclerae anicteric and conjunctivae pink and moist. Extraocular movements were intact and pupils were equal, round, and reactive to light. The oral mucosa, hard and soft palate, tongue and posterior pharynx were normal. NECK: Supple. There was no thyroid enlargement, and no tenderness, or masses were felt. CHEST: Normal AP diameter and normal contour without any kyphoscoliosis. LUNGS: Auscultation of the lungs diffuse crackles bilaterally, no wheezing CARDIAC: There was a regular rate and rhythm without any murmurs. ABDOMEN: Soft and nontender with normal bowel sounds. There was no organomegaly. LYMPH NODES: No lymphadenopathy was appreciated in the neck. EXTREMITIES: No cyanosis, clubbing or edema. NEUROLOGIC: Alert and oriented x 3. Normal affect. Objective Data Vital Signs Vital Signs: Vital Signs - 24 hr 07/28/22 09:20 07/28/22 10:00 07/28/22 11:53 Temperature Pulse Rate 78 Respiratory Rate Blood Pressure Pulse Oximetry 90 93 Oxygen Delivery High Flow Therapy with Na High Flow Therapy with Na Oxygen Flow Rate 25 20 Fraction of Inspired Oxygen 35 35 07/28/22 12:00 07/28/22 12:00 07/28/22 14:00 Temperature 36.1 C L Pulse Rate 91 89 Respiratory Rate 28 H 18 Blood Pressure 133/60 Pulse Oximetry 94 96 Oxygen Delivery High Flow Therapy with Na Oxygen Flow Rate 8 Fraction of Inspired Oxygen 07/28/22 14:04 07/28/22 14:12 07/28/22 12:00 Temperature Pulse Rate 92 79 Respiratory Rate 20 Blood Pressure Pulse Oximetry 95 Oxygen Delivery High Flow Nasal Cannula Oxygen Flow Rate 8 Fraction of Inspired Oxygen 07/28/22 14:00 07/28/22 16:00 07/28/22 16:00 Temperature 36.4 C Pulse Rate 86 98 Respiratory Rate 28 H Blood Pressure 134/70 Pulse Oximetry 96 94 Oxygen Delivery High Flow Therapy with Na Oxygen Flow Rate 8 Fraction of Inspired Oxygen 07/28/22 16:00 07/28/22 18:00 07/28/22 20:16 Temperature 36.3 C L Pulse Rate 97 95 87 Respiratory Rate 20 Blood Pressure 136/73 Pulse Oximetry 96 Oxygen Delivery Oxygen Flow Rate Fraction of Inspired Oxygen 07/28/22 20:05 07/28/22 20:05 07/28/22 20:06 Temperature Pulse Rate 88 88 89 Respirator
[2022-07-29] MEDS: methylPREDNISolone SOD SUCC 125 MG VIAL 60 MG IV PUSH (09:18)
--- NOTE | 2022-07-29 09:37 | PM.IMPN ---
Progress Note: A&P Assessment and Plan (1) Acute and chronic respiratory failure with hypoxia: Code(s): J96.21 - Acute and chronic respiratory failure with hypoxia Status: Acute Assessment and Plan: Advanced pulmonary fibrosis noted, no active infection seen, appreciate pulmonology consultation Continue steroids, supportive care, minimal improvement BNP 137 07/26: Hospice care has been discussed, this is not unreasonable, awaiting pulmonology recommendations regarding whether this is a flare or progression of the disease, they are planning to compare old images with new images and monitor response to current treatment 07/27: Would recommend hospice care. Repeat imaging showing no change. Supportive care and steroids showing no improvement. Suspect her symptoms are secondary to disease progression. Patient refusing lung transplant, which is reasonable. Will discuss with family and place consult to hospice to explore options. Defer to pulm for final recs. 07/28: Continues to improve, suspect hospice would be appropriate at discharge. Continue current management, goal of getting patient weaned to 5 L nc so she can go home with hospice. 07/29: Decides against hospice. Oxygen went down to 6 L. Will order PT OT. Repeat labs today. On steroid and Levaquin which will be continued (2) Pulmonary fibrosis: Code(s): J84.10 - Pulmonary fibrosis, unspecified Status: Acute Assessment and Plan: as above (3) Hypertension: Code(s): I10 - Essential (primary) hypertension Status: Acute Assessment and Plan: stable Plan 07/26: Extensive discussion had with family regarding patient's prognosis. Do not think that hospice is appropriate at this time, but is definitely something to consider in the near future. I agree with code status to DNR. Would like to give the patient a few more days on IV steroids and supportive care to see if we can get her back to her baseline 4 L at home. If over the next few days, she continued to deteriorate, would agree that hospice is appropriate as the patient's pulmonary fibrosis progressing is likely the etiology. Patient is not interested in a lung transplantation which is the only definitive treatment pulmonology would recommend in this case. DVT prophylaxis with Lovenox GI prophylaxis with PPI Code status full code Subjective Date/time seen: 07/29/22 09:37 Interval history: No overnight events noted. Feeling better. Dry cough present. No leg swelling. Diagnosed with pulmonary fibrosis 3 years ago. Been on oxygen since 1 year. Review of Systems Review of Systems: All systems reviewed & are unremarkable except as noted in HPI and below Exam Narrative: General: No acute distress, alert and oriented per baseline HEENT: Atraumatic, normocephalic, mucous membranes moist CV: Regular rate and rhythm, S1, S2 Lungs: Diminished throughout, no wheeze or rhonchi noted Abdomen: Soft, nontender, nondistended Extremities: Normal to inspection Skin: No rashes noted, no lesions or wounds seen Psych: Euthymic, normal affect Objective Data Vital Signs Vital Signs: Vital Signs - 24 hr 07/28/22 10:00 07/28/22 11:53 07/28/22 12:00 Temperature 97.0 F L Pulse Rate 78 91 Respiratory Rate 28 H Blood Pressure 133/60 Pulse Oximetry 93 94 Oxygen Delivery High Flow Therapy with Na Oxygen Flow Rate 20 Fraction of Inspired Oxygen 35 07/28/22 12:00 07/28/22 14:00 07/28/22 14:04 Temperature Pulse Rate 89 Respiratory Rate 18 Blood Pressure Pulse Oximetry 96 95 Oxygen Delivery High Flow Therapy with Na High Flow Nasal Cannula Oxygen Flow Rate 8 8 Fraction of Inspired Oxygen 07/28/22 14:12 07/28/22 12:00 07/28/22 14:00 Temperature Pulse Rate 92 79 86 Respiratory Rate 20 Blood Pressure Pulse Oximetry Oxygen Delivery Oxygen Flow Rate Fraction of Inspired Oxygen 07/28/22 16:00 07/28
[2022-07-29 10:29] LABS: Hematocrit 46.7 % (37.0-47.0); Hemoglobin 15.2 g/dL (12.0-15.0); Mean Corpuscular HGB Conc 32.5 g/dl (32-36); Mean Corpuscular Hemoglobin 31.2 pg (26-34); Mean Corpuscular Volume 95.9 fl (80-100); Mean Platelet Volume 9.3 fl (7.4-10.4); Platelet Count Result 275 k/mm3 (150-375); Red Blood Count 4.87 M/mm3 (4.2-5.4); White Blood Count 9.9 K/mm3 (4.5-10.0)
[2022-07-29 11:10] LABS: Anion Gap 6 mmol/L (8-16); Blood Urea Nitrogen 26 mg/dL (7-17); Calcium 9.1 mg/dL (8.4-10.2); Carbon Dioxide 30 mmol/L (22-30); Chloride 95 mmol/L (98-107); Estimated CRCL calculation 72 ml/min; Estimated Glomerular Filt Rate > 60; Glucose 115 mg/dL (65-110); Potassium 3.9 mmol/L (3.4-5.0); Sodium 131 mmol/L (137-145)
[2022-07-29 12:05] LABS: Glucose Point of Care 177 mg/dl (65-105)
[2022-07-29 16:47] LABS: Glucose Point of Care 238 mg/dl (65-105)
[2022-07-29] MEDS: FAMOTIDINE 20 MG TABLET 40 MG PO (17:25)
[2022-07-29] MEDS: INSULIN ASPART (*BKC) 100 UNITS/ML SUB-Q (17:31)
[2022-07-29 20:34] LABS: Glucose Point of Care 122 mg/dl (65-105)
[2022-07-29] MEDS: ACETAMINOPHEN 325 MG TABLET 650 MG PO (20:56)
[2022-07-29] MEDS: diphenhydrAMINE HCl CAP 25 MG CAPSULE PO (20:57)
[2022-07-29] MEDS: MELATONIN 5 MG TABLET PO (20:57)
[2022-07-29] MEDS: LORATADINE 10 MG TABLET PO (20:59)
[2022-07-29] MEDS: SIMVASTATIN 20 MG TABLET PO (20:59)
[2022-07-30] VITALS (32 sets, daily range): BP systolic 114–138; BP diastolic 54–80; PULSE 66–110; RESP 16–24; TEMP 35.9–36.6; O2SAT 82–98
[2022-07-30] MEDS: IPRATROPIUM BR 0.02% INH SOLN 0.5 MG/2.5 ML VIAL INHALATION ×4 (02:20→20:16)
[2022-07-30] MEDS: ALBUTEROL SULFATE NEB 2.5 MG/3 ML INH 5 MG INHALATION ×4 (02:20→20:16)
[2022-07-30 08:31] LABS: Anion Gap 6 mmol/L (8-16); Blood Urea Nitrogen 25 mg/dL (7-17); Calcium 8.9 mg/dL (8.4-10.2); Carbon Dioxide 31 mmol/L (22-30); Chloride 94 mmol/L (98-107); Estimated CRCL calculation 71 ml/min; Estimated Glomerular Filt Rate > 60; Glucose 90 mg/dL (65-110); Potassium 3.7 mmol/L (3.4-5.0); Sodium 131 mmol/L (137-145)
[2022-07-30 09:05] LABS: Glucose Point of Care 104 mg/dl (65-105)
[2022-07-30] MEDS: CHOLECALCIFEROL 1,000 UNITS TABLET 5000 UNITS PO (09:22)
[2022-07-30] MEDS: FLUCONAZOLE 100 MG TABLET PO (09:22)
[2022-07-30] MEDS: predniSONE 20 MG TABLET 40 MG PO (09:22)
[2022-07-30] MEDS: ASPIRIN 81 MG ENTERIC TABLET PO (09:22)
[2022-07-30] MEDS: hydroCHLOROthiazide 12.5 MG CAPSULE PO (09:22)
[2022-07-30] MEDS: FLUoxetine HCL 20 MG CAPSULE 60 MG PO (09:23)
[2022-07-30] MEDS: ENOXAPARIN 40 MG/0.4 ML SYRINGE SUB-Q (09:23)
[2022-07-30] MEDS: PANTOPRAZOLE 40 MG TABLET PO (09:23)
[2022-07-30] MEDS: BENZONATATE 100 MG CAPSULE 200 MG PO ×3 (09:23→17:11)
[2022-07-30] MEDS: NYSTATIN 100,000 UNITS/ML SUSP 5 ML ORAL.SUSP 4 ML PO ×4 (09:23→20:35)
[2022-07-30] MEDS: guaiFENesin 12 HR 600 MG TABCR PO ×2 (09:23→20:35)
[2022-07-30] MEDS: FLUTICASONE PROPIONATE 0.05% NA SPR 16 GM BTL (*BKC) 2 SPRAY NASAL (09:24)
[2022-07-30] MEDS: OPTI-GEN TAB 1 TABLET PO ×2 (09:24→17:09)
[2022-07-30] MEDS: FLUTICASONE PROP 110 MCG INHALER 12 GM (*SP) 2 PUFF INHALATION ×2 (09:26→20:16)
--- NOTE | 2022-07-30 11:10 | PM.PNPUL ---
Progress Note: A&P Assessment and Plan (1) Acute and chronic respiratory failure with hypoxia: Code(s): J96.21 - Acute and chronic respiratory failure with hypoxia Status: Acute Assessment and Plan: 71-year-old female with advanced pulmonary fibrosis who had been on nintedanib treatment presented with worsening shortness of breath. Chest imaging studies available since early this month have shown advanced pulmonary fibrosis but no new infiltrates suggestive of lower respiratory tract infection and/or fibrosis exacerbation. Patient is currently on treatment with antibiotic and IV steroids. FiO2 lower over the last couple of days. Patient changed her mind about going on hospice care. She would like to have visiting nurse at home. Plan: Switch patient to oral steroids, home oxygen evaluation before DC home, upgrade home oxygen concentrator to deliver up to 10 liters/minute as patient desaturates on oxygen flow 5 liters/minute. okay to DC patient home in a.m.. The patient should continue with her anti fibrotic medicine nintedanib as before, nebulized short-acting bronchodilators p.r.n., supplemental oxygen and a prednisone tapering regimen for another 3 weeks i.e. prednisone 30 mg for 4 days, then prednisone 25 mg for 4 days, then prednisone 20 mg for 4 day,s then prednisone 15 mg for 4 days, then to continue with her maintenance prednisone 10 mg daily. The patient will call the [facility] for follow-up in approximately 1 month. Will sign off please call with any questions. (2) Pulmonary fibrosis: Code(s): J84.10 - Pulmonary fibrosis, unspecified Status: Acute (3) Hypertension: Code(s): I10 - Essential (primary) hypertension Status: Acute Subjective Date/time seen: 07/30/22 11:10 patient doing better. Has less shortness of breath, less coughing. Afebrile. FiO2 decreased down to 5 liters/minute via nasal cannula Review of Systems Review of Systems: All systems reviewed & are unremarkable except as noted in HPI and below Exam Narrative: GENERAL APPEARANCE: Well developed, well nourished, alert and cooperative, and appears to be in no mild to moderate respiratory distress while on high-flow nasal cannula SKIN: Inspection of the skin reveals no rashes, ulcerations or petechiae. HEENT: Sclerae anicteric and conjunctivae pink and moist. Extraocular movements were intact and pupils were equal, round, and reactive to light. The oral mucosa, hard and soft palate, tongue and posterior pharynx were normal. NECK: Supple. There was no thyroid enlargement, and no tenderness, or masses were felt. CHEST: Normal AP diameter and normal contour without any kyphoscoliosis. LUNGS: Auscultation of the lungs diffuse crackles bilaterally, no wheezing CARDIAC: There was a regular rate and rhythm without any murmurs. ABDOMEN: Soft and nontender with normal bowel sounds. There was no organomegaly. LYMPH NODES: No lymphadenopathy was appreciated in the neck. EXTREMITIES: No cyanosis, clubbing or edema. NEUROLOGIC: Alert and oriented x 3. Normal affect. Objective Data Vital Signs Vital Signs: Vital Signs - 24 hr 07/29/22 12:00 07/29/22 12:00 07/29/22 12:00 Temperature 36.6 C Pulse Rate 89 88 Respiratory Rate 22 H Blood Pressure 129/62 Pulse Oximetry 97 94 Oxygen Delivery High Flow Nasal Cannula Oxygen Flow Rate 6 07/29/22 14:00 07/29/22 15:39 07/29/22 15:41 Temperature Pulse Rate 87 91 Respiratory Rate 18 Blood Pressure Pulse Oximetry 93 Oxygen Delivery High Flow Nasal Cannula Oxygen Flow Rate 5 07/29/22 15:48 07/29/22 16:00 07/29/22 16:00 Temperature Pulse Rate 84 90 Respiratory Rate 18 Blood Pressure Pulse Oximetry 96 Oxygen Delivery High Flow Nasal Cannula Oxygen Flow Rate 5 07/29/22 16:00 07/29/22 16:00 07/29/22 18:00 Temperature 36.0 C L Pulse Rate 90 93 85 Respiratory Rate 24 H Blood Pressure 140/72
[2022-07-30 12:02] LABS: Glucose Point of Care 175 mg/dl (65-105)
--- NOTE | 2022-07-30 14:18 | HOMEO2EVAL ---
Evaluation was performed at [facility] Home Oxygen Evaluation RC: Home Oxygen (O2) Evaluation Start: 07/30/22 13:16 Freq: ONCE Status: Active Protocol: RPE Activity Type Activity Date Activity User E-sign Co-sign Detail Recorded Client Recorded Date Recorded By Document 07/30/22 13:00 [email or web address] [email or web address] 07/30/22 14:18 DJO Document 07/30/22 13:05 [email or web address] [email or web address] 07/30/22 14:18 DJO Document 07/30/22 13:10 [email or web address] [email or web address] 07/30/22 14:18 DJO Document 07/30/22 13:15 [email or web address] [email or web address] 07/30/22 14:18 DJO Document 07/30/22 13:20 [email or web address] [email or web address] 07/30/22 14:18 DJO Document 07/30/22 13:25 [email or web address] [email or web address] 07/30/22 14:18 DJO Document 07/30/22 13:30 [email or web address] [email or web address] 07/30/22 14:18 DJO Document 07/30/22 13:35 [email or web address] [email or web address] 07/30/22 14:18 DJO Document 07/30/22 13:40 [email or web address] [email or web address] 07/30/22 14:18 DJO Document 07/30/22 13:45 [email or web address] [email or web address] 07/30/22 14:18 DJO Document 07/30/22 14:00 [email or web address] [email or web address] 07/30/22 14:18 DJO 07/30/22 07/30/22 07/30/22 13:00 13:05 13:10 Home O2 Evaluation [Oxygen] -Test Phase Resting Resting Resting -Oxygen Delivery Room Air Nasal Cannula Nasal Cannula -Oxygen Flow Rate (L/min) 1 2 [Pulse Oximetry] -Pulse Oximetry (90-100 %) 82 L 83 L 84 L [Pulse Rate] -Pulse Rate (60-100 beats/min) 99 98 96 07/30/22 07/30/22 07/30/22 13:15 13:20 13:25 Home O2 Evaluation [Oxygen] -Test Phase Resting Resting Resting -Oxygen Delivery Nasal Cannula Nasal Cannula Nasal Cannula -Oxygen Flow Rate (L/min) 3 4 5 [Pulse Oximetry] -Pulse Oximetry (90-100 %) 86 L 88 L 90 [Pulse Rate] -Pulse Rate (60-100 beats/min) 97 95 94 07/30/22 07/30/22 07/30/22 13:30 13:35 13:40 Home O2 Evaluation [Oxygen] -Test Phase Exercise Exercise Exercise -Oxygen Delivery Nasal Cannula Nasal Cannula Nasal Cannula -Oxygen Flow Rate (L/min) 5 6 7 [Pulse Oximetry] -Pulse Oximetry (90-100 %) 85 L 86 L 88 L [Pulse Rate] -Pulse Rate (60-100 beats/min) 103 H 100 105 H 07/30/22 07/30/22 13:45 14:00 Home O2 Evaluation [Oxygen] -Test Phase Exercise Resting -Oxygen Delivery Nasal Cannula Nasal Cannula -Oxygen Flow Rate (L/min) 8 5 [Pulse Oximetry] -Pulse Oximetry (90-100 %) 91 90 [Pulse Rate] -Pulse Rate (60-100 beats/min) 110 H 92
--- NOTE | 2022-07-30 14:51 | PCRCNOTE ---
HOME O2 EVAL COMPLETE, 5 LITERS AT REST AND 8 LITERS WITH ACTIVITY. PT HAS [facility] [place] FOR O2 EQUIPMENT. [facility] [place] TO DELIVER HIGHFLOW CONCENTRATOR TO PT'S HOME TODAY. PT HAS PORTABLE CONCENTRATOR FOR DISCHARGE.
[2022-07-30 16:56] LABS: Glucose Point of Care 194 mg/dl (65-105)
[2022-07-30] MEDS: FAMOTIDINE 20 MG TABLET 40 MG PO (17:10)
--- NOTE | 2022-07-30 17:42 | PM.IMPN ---
Progress Note: A&P Assessment and Plan (1) Acute and chronic respiratory failure with hypoxia: Code(s): J96.21 - Acute and chronic respiratory failure with hypoxia Status: Acute Assessment and Plan: Advanced pulmonary fibrosis noted, no active infection seen, appreciate pulmonology consultation Continue steroids, supportive care, minimal improvement BNP 137 07/26: Hospice care has been discussed, this is not unreasonable, awaiting pulmonology recommendations regarding whether this is a flare or progression of the disease, they are planning to compare old images with new images and monitor response to current treatment 07/27: Would recommend hospice care. Repeat imaging showing no change. Supportive care and steroids showing no improvement. Suspect her symptoms are secondary to disease progression. Patient refusing lung transplant, which is reasonable. Will discuss with family and place consult to hospice to explore options. Defer to pulm for final recs. 07/28: Continues to improve, suspect hospice would be appropriate at discharge. Continue current management, goal of getting patient weaned to 5 L nc so she can go home with hospice. 07/29: Decides against hospice. Oxygen went down to 6 L. Will order PT OT. Repeat labs today. On steroid and Levaquin which will be continued 07/30: Continues to improve. Plan for steroid taper. Home oxygen evaluation has been ordered. Plan for discharge in a.m. labs reviewed. Upgrade home oxygen concentrator to deliver up to 10 liters/minute. (2) Pulmonary fibrosis: Code(s): J84.10 - Pulmonary fibrosis, unspecified Status: Acute Assessment and Plan: as above (3) Hypertension: Code(s): I10 - Essential (primary) hypertension Status: Acute Assessment and Plan: stable Plan 07/26: Extensive discussion had with family regarding patient's prognosis. Do not think that hospice is appropriate at this time, but is definitely something to consider in the near future. I agree with code status to DNR. Would like to give the patient a few more days on IV steroids and supportive care to see if we can get her back to her baseline 4 L at home. If over the next few days, she continued to deteriorate, would agree that hospice is appropriate as the patient's pulmonary fibrosis progressing is likely the etiology. Patient is not interested in a lung transplantation which is the only definitive treatment pulmonology would recommend in this case. DVT prophylaxis with Lovenox GI prophylaxis with PPI Code status full code Subjective Date/time seen: 07/30/22 17:42 Interval history: Feeling better. Up to chair. Discussed with the daughter. No leg swelling. Dry cough present. Review of Systems Review of Systems: All systems reviewed & are unremarkable except as noted in HPI and below Exam Narrative: General: No acute distress, alert and oriented per baseline HEENT: Atraumatic, normocephalic, mucous membranes moist CV: Regular rate and rhythm, S1, S2 Lungs: Diminished throughout, no wheeze or rhonchi noted Abdomen: Soft, nontender, nondistended Extremities: Normal to inspection Skin: No rashes noted, no lesions or wounds seen Psych: Euthymic, normal affect Objective Data Vital Signs Vital Signs: Vital Signs - 24 hr 07/29/22 18:00 07/29/22 20:07 07/29/22 20:14 Temperature Pulse Rate 85 94 Respiratory Rate 18 Blood Pressure Pulse Oximetry 94 Oxygen Delivery Nasal Cannula Oxygen Flow Rate 5 07/29/22 20:23 07/29/22 20:25 07/29/22 20:00 Temperature 97.8 F Pulse Rate 90 85 83 Respiratory Rate 18 20 Blood Pressure 136/76 Pulse Oximetry 98 Oxygen Delivery Oxygen Flow Rate 07/29/22 20:00 07/29/22 22:00 07/29/22 23:57 Temperature 97.8 F Pulse Rate 85 82 85 Respiratory Rate 20 20 Blood Pressure 130/72 Pulse Oximetry 98 98 Oxygen Delivery Nasal Cannula Oxygen Flow Rate 5
[2022-07-30 20:06] LABS: Glucose Point of Care 174 mg/dl (65-105)
[2022-07-30] MEDS: ACETAMINOPHEN 325 MG TABLET 650 MG PO (20:35)
[2022-07-30] MEDS: diphenhydrAMINE HCl CAP 25 MG CAPSULE PO (20:35)
[2022-07-30] MEDS: LORATADINE 10 MG TABLET PO (20:36)
[2022-07-30] MEDS: SIMVASTATIN 20 MG TABLET PO (20:36)
[2022-07-30] MEDS: MELATONIN 5 MG TABLET PO (20:36)
[2022-07-31] VITALS (12 sets, daily range): BP systolic 117; BP diastolic 57; PULSE 72–91; RESP 18–24; TEMP 35.5; O2SAT 93–98
[2022-07-31] MEDS: IPRATROPIUM BR 0.02% INH SOLN 0.5 MG/2.5 ML VIAL INHALATION ×2 (01:26→09:23)
[2022-07-31] MEDS: ALBUTEROL SULFATE NEB 2.5 MG/3 ML INH 5 MG INHALATION ×2 (01:26→09:23)
[2022-07-31 08:26] LABS: Glucose Point of Care 91 mg/dl (65-105)
[2022-07-31] MEDS: hydroCHLOROthiazide 12.5 MG CAPSULE PO (09:02)
[2022-07-31] MEDS: OPTI-GEN TAB 1 TABLET PO (09:02)
[2022-07-31] MEDS: FLUoxetine HCL 20 MG CAPSULE 60 MG PO (09:02)
[2022-07-31] MEDS: ASPIRIN 81 MG ENTERIC TABLET PO (09:02)
[2022-07-31] MEDS: predniSONE 20 MG TABLET 40 MG PO (09:02)
[2022-07-31] MEDS: ENOXAPARIN 40 MG/0.4 ML SYRINGE SUB-Q (09:03)
[2022-07-31] MEDS: BENZONATATE 100 MG CAPSULE 200 MG PO ×2 (09:03→12:28)
[2022-07-31] MEDS: guaiFENesin 12 HR 600 MG TABCR PO (09:03)
[2022-07-31] MEDS: CHOLECALCIFEROL 1,000 UNITS TABLET 5000 UNITS PO (09:03)
[2022-07-31] MEDS: NYSTATIN 100,000 UNITS/ML SUSP 5 ML ORAL.SUSP 4 ML PO ×2 (09:03→12:28)
[2022-07-31] MEDS: FLUCONAZOLE 100 MG TABLET PO (09:03)
[2022-07-31] MEDS: PANTOPRAZOLE 40 MG TABLET PO (09:03)
[2022-07-31] MEDS: FLUTICASONE PROPIONATE 0.05% NA SPR 16 GM BTL (*BKC) 2 SPRAY NASAL (09:04)
--- NOTE | 2022-07-31 09:07 | PCNWS ---
Weekly nutritional screen. Patient is tolerating current Heart healthy diet with adequate intake at 75-100% of meals. No weight loss reported. No nutritional needs at this time.
[2022-07-31] MEDS: HYDROcodone/acetaminophen (*CRX) 5-325 MG TABLET 1 TAB PO (09:11)
[2022-07-31] MEDS: FLUTICASONE PROP 110 MCG INHALER 12 GM (*SP) 2 PUFF INHALATION (09:24)
--- NOTE | 2022-07-31 10:39 | PM.DS ---
DS: Admitting Diagnosis Discharge Date 07/31/2022 Admitting Diagnosis shortness of breath DS: Discharge Diagnosis Discharge Diagnosis (1) Acute and chronic respiratory failure with hypoxia: Code(s): J96.21 - Acute and chronic respiratory failure with hypoxia Status: Acute (2) Pulmonary fibrosis: Code(s): J84.10 - Pulmonary fibrosis, unspecified Status: Acute (3) Hypertension: Code(s): I10 - Essential (primary) hypertension Status: Acute DS: Summary Hospital Course Hospital Course: # Acute and chronic respiratory failure with hypoxia: She has underlying advanced pulmonary fibrosis. Pulmonary was consulted. No active infection was seen she was initially treated with levofloxacin which was continued throughout the hospital stay. She will also started on steroid for pulmonary fibrosis flare. BNP was 137. She also was discussed with hospice care due to advanced pulmonary fibrosis however this was deferred at this time. She improved to some extent and was down to 5 L oxygen via nasal cannula but needs up to 8 L with exertion. PT OT is ordered and home health was set of for home. Decision was made to get her home with family and a arrange for higher level of oxygen concentrator to deliver up to 10 liter/minute. She will continue on a prednisone taper as suggested by the business performance specialist and will follow-up with pulmonary as an outpatient basis. # advanced pulmonary fibrosis # hypertension # DVT prophylaxis with Lovenox # code status was discussed during the hospital stay and was changed to do not resuscitate. Time Spent with Patient Time attestation: Total time spent providing and/or coordinating discharge services: 40 minutes Exam Narrative: General: No acute distress, alert and oriented per baseline HEENT: Atraumatic, normocephalic, mucous membranes moist CV: Regular rate and rhythm, S1, S2 Lungs: Diminished throughout, no wheeze or rhonchi noted Abdomen: Soft, nontender, nondistended Extremities: Normal to inspection Skin: No rashes noted, no lesions or wounds seen Psych: Euthymic, normal affect DS: Data Data Completed and Pending Labs on day of discharge: Labs from last 24 hours 07/31/22 07/30/22 07/30/22 08:23 19:53 16:24 POC Capillary Glucose 91 174 H 194 H 07/30/22 11:59 POC Capillary Glucose 175 H Imaging Radiologist's impression: ITS Impressions Chest X-Ray 07/24/22 15:51 Impression: Diffuse chronic interstitial disease. Chest CTA 07/24/22 17:40 IMPRESSION: No evidence of pulmonary embolism Extensive bilateral pulmonary interstitial fibrosis Chest X-Ray 07/26/22 10:57 IMPRESSION: 1. Unchanged diffuse interstitial and airspace opacities throughout both lungs which could represent pulmonary edema or pneumonia in the acute setting, chronic interstitial lung disease or some combination thereof. Chest X-Ray 07/28/22 06:24 Impression: Stable diffuse chronic interstitial disease. Discharge Plan Discharge Attending physician on discharge: Boom Ugalde Consulting providers: Niko Colon Discharging Clinician: Boom Ugalde Anticipated Discharge Date/Time: 07/31/22 10:32 Patient Disposition: Home Health Service Activity: as tolerated Diet: heart healthy Discharge Instructions: Per Care Coordination Patient is arranged to have [facility] for RN, PT, OT [phone] Patient Instructions: Antibiotic Form, Pulmonary Fibrosis (DC), Acute Respiratory Failure (GEN) Stand Alone Forms: General Discharge Information Follow-up/Referrals: PHYSICIAN NOT ON STAFF,NONSTAFF [Primary Care Provider] - 1 Week Niko Colon MD [Physician] - 4 Weeks Discharge Medications: New guaifenesin [Mucus Relief ER] 600 mg Tablet Extended Release 12hr 600 mg PO Q12HR Qty: 30 0RF benzonatate 100 mg Capsule 200 mg PO TID Qty: 30 0RF prednisone 10 m
--- NOTE | 2022-07-31 13:30 | PC.NURSE ---
Reviewed discharge paperwork with pt and pt's daughter. Peripheral access removed. All questions were answered. Pt was escorted out via wheelchair with staff.
[2022-07-31 14:11] LABS: Glucose Point of Care 154 mg/dl (65-105)
== END 2022-07-31 13:30 | disposition home health service (06) | DRG 189 ==
LOC: ANHED 19:33 → ANHIMU 21:06
PROVIDERS: Internal Medicine; Internal Medicine Pulmonary Disease; Student in an Organized Health Care Education/Training Program; Admitting Provider Internal Medicine; Emergency Provider Emergency Medicine; Visit Provider Internal Medicine
DX: J96.21 Acute and chronic respiratory failure with hypoxia (principal); B37.0 Candidal stomatitis; J84.10 Pulmonary fibrosis, unspecified; J47.9 Bronchiectasis, uncomplicated; I10 Essential (primary) hypertension; E78.5 Hyperlipidemia, unspecified; H35.30 Unspecified macular degeneration; K21.9 Gastro-esophageal reflux disease without esophagitis; N39.46 Mixed incontinence; G60.9 Hereditary and idiopathic neuropathy, unspecified; F32.A Depression, unspecified; F41.9 Anxiety disorder, unspecified; Z20.822 Contact with and (suspected) exposure to COVID-19; Z66 Do not resuscitate; Z99.81 Dependence on supplemental oxygen; Z79.51 Long term (current) use of inhaled steroids; Z79.52 Long term (current) use of systemic steroids
CPT/HCPCS: 36415; 36600; 71045; 71275; 80048; 80053; 82375; 82805; 82948; 83036; 83050; 83605; 83880; 85025; 85027; 85610; 85730; 87040; 87081; 87502; 87634; 87636; 93005; 93306; 94640; 94667; 96365; 96375; 96376; 97162; 97165; 97530; 97535; 99285; A9270; C9113; G0378; J1650; J1815; J1940; J1956; J2930; J7030; J7512; Q9967; U0003; U0005

== ENCOUNTER 2022-08-13 09:58 | Outpatient (NON) | payer MEDICARE, SELFPAY ==
[2022-08-13 11:29] LABS: Strep Group A RT-PCR NOT DETECTED (Negative)
== END 2022-08-13 09:59 | disposition home or self-care (01) ==
LOC: HOME HLTH 10:00
PROVIDERS: PCP Family Medicine; Visit Provider Family Medicine
DX: K21.9 Gastro-esophageal reflux disease without esophagitis (principal); J84.10 Pulmonary fibrosis, unspecified; I10 Essential (primary) hypertension; J96.21 Acute and chronic respiratory failure with hypoxia
CPT/HCPCS: 87651

== ENCOUNTER 2022-08-27 17:02 | Outpatient (CLI) | payer MEDICARE, SELFPAY ==
[2022-08-27 17:17] LABS: Basophils Absolute Auto 0.1 K/mm3 (0.0-0.1); Basophils Percent Auto 0.5 % (0.2-1.2); Eosinophils Absolute Auto 0.1 K/mm3 (0-0.3); Hematocrit 48.1 % (37.0-47.0); Hemoglobin 15.9 g/dL (12.0-15.0); Immature Granulocyte Absolute 0.17 K/mm3 (0.00-0.031); Immature Granulocyte Percent A 1.8 % (0-0.5); Lymphocytes Absolute Auto 1.83 K/mm3 (0.9-3.2); Mean Corpuscular HGB Conc 33.1 g/dl (32-36); Mean Corpuscular Hemoglobin 32.1 pg (26-34); Mean Corpuscular Volume 97.2 fl (80-100); Mean Platelet Volume 8.9 fl (7.4-10.4); Monocytes Absolute Auto 0.7 K/mm3 (0.1-0.6); Monocytes Percent Auto 6.9 % (2.6-8.5); Neutrophils Absolute Auto 6.8 K/mm3 (1.3-6.7); Neutrophils Percent Auto 70.8 % (45.5-73.1); Platelet Count Result 219 k/mm3 (150-375); Red Blood Count 4.95 M/mm3 (4.2-5.4); Red Cell Distribution Width 13.9 % (11.5-14.5); White Blood Count 9.6 K/mm3 (4.5-10.0)
[2022-08-27 17:26] LABS: Alanine Aminotransferase 55 U/L (6-35); Albumin Level 3.8 g/dL (3.5-5.1); Alkaline Phosphatase 99 U/L (38-126); Anion Gap 7 mmol/L (8-16); Aspartate Amino Transferase 39 U/L (14-36); Bilirubin,Total 1.1 mg/dL (0.2-1.3); Blood Urea Nitrogen 28 mg/dL (7-17); Calcium 9.2 mg/dL (8.4-10.2); Carbon Dioxide 29 mmol/L (22-30); Chloride 99 mmol/L (98-107); Estimated Glomerular Filt Rate > 60; Glucose 91 mg/dL (65-110); Potassium 3.7 mmol/L (3.4-5.0); Sodium 135 mmol/L (137-145)
== END 2022-08-27 17:03 | disposition home or self-care (01) ==
PROVIDERS: PCP Family Medicine; Visit Provider Internal Medicine Pulmonary Disease
DX: J84.10 Pulmonary fibrosis, unspecified (principal)
CPT/HCPCS: 36415; 80053; 85025